=== PATIENT | male | born 1980 | race African-American/Black ===

== ENCOUNTER 2018-02-02 14:26 | Outpatient (CLI) | payer BC, SELFPAY ==
[2018-02-02 16:25] LABS: CREATININE 0.98 mg/dL (0.70-1.30); Potassium 4.1 mmol/L (3.5-5.1)
== END 2018-02-02 14:46 ==
PROVIDERS: PCP Family Medicine; Visit Provider Family Medicine
DX: G40.909 Epilepsy, unspecified, not intractable, without status epilepticus (principal); I10 Essential (primary) hypertension
CPT/HCPCS: 36415; 82565; 84132

== ENCOUNTER 2019-10-17 04:52 | Outpatient (CLI) | payer BC, SELFPAY ==
[2019-10-17 14:50] LABS: HGB 14.7 g/dL (13.5-17.5); Mean Corp. HGB Concentration 33.4 g/dL (32.0-36.0); Mean Corpuscular Hemoglobin 29.5 pg (27.0-33.0); Mean Corpuscular Volume 88.2 fL (80-95); Platelet Count 383 x1000/uL (130-400); RBC 4.99 m/cumm (4.50-6.00); RBC Distribution Width 14.5 % (11.8-14.1); White Blood Cell Count 7.66 k/cumm (4.4-10.8)
[2019-10-17 15:58] LABS: ALT 56 U/L (16-63); AST 21 U/L (15-37); Albumin 4.3 g/dL (3.4-5.0); Alkaline Phosphatase 68 U/L (46-116); Anion Gap 5.3 mmol/L (3-11); BUN 16 mg/dL (7-18); Bilirubin, Total 0.2 mg/dL (0.2-1.0); CO2 28.7 mmol/L (21.0-32.0); CREATININE 1.09 mg/dL (0.70-1.30); Calcium 9.7 mg/dL (8.5-10.1); Calculated LDL 250 mg/dL (<100); Chloride 103 mmol/L (98-107); Cholesterol 319 mg/dL (<200); Glucose 111 mg/dL (74-106); HDL Cholesterol 45 mg/dL (40-60); Potassium 3.8 mmol/L (3.5-5.1); Sodium 137 mmol/L (136-145); Total Protein 7.8 g/dL (6.4-8.2); Triglyceride 121 mg/dL (<150)
== END 2019-10-17 05:12 ==
PROVIDERS: PCP Family Medicine; Visit Provider Family Medicine
DX: I10 Essential (primary) hypertension (principal); E78.5 Hyperlipidemia, unspecified
CPT/HCPCS: 36415; 80053; 80061; 85027

== ENCOUNTER 2020-01-25 07:14 | Emergency (ER) | payer BC, SELFPAY ==
[2020-01-25] VITALS (43 sets, daily range): BP systolic 130–178; BP diastolic 79–122; PULSE 54–85; RESP 8–28; TEMP 36.7–37.1; O2SAT 94–100
--- NOTE | 2020-01-25 07:42 | W.ED.GENAD ---
Discharge Plan Disposition Patient Disposition: HOME Condition: Stable Discharge Details Clinical Impression: Chest pain Primary Care Provider: Oren Wade ED Provider: Ar Perez Home Meds and New Rx's Prescriptions: Continued cyclobenzaprine 10 mg tablet 10 mg PO TID PRN (Reason: muscle spasm) Qty: 30 RF: 0 ibuprofen 800 mg tablet 800 mg PO Q8H PRN RF: 0 amlodipine 5 mg tablet 5 mg PO DAILY Qty: 90 RF: 3 rosuvastatin 20 mg tablet 20 mg PO DAILY Qty: 90 RF: 3 hydrochlorothiazide 25 mg tablet 25 mg PO DAILY Qty: 90 RF: 3 lisinopril 20 mg tablet 40 mg PO DAILY Qty: 180 RF: 3 sertraline 50 mg tablet 50 mg PO DAILY Qty: 90 RF: 3 sildenafil (pulm.hypertension) 20 mg tablet 20 - 100 mg PO DAILY PRN (Reason: sexual activity) Qty: 30 RF: 5 azithromycin 250 mg tablet 250 - 500 mg PO DAILY Qty: 6 RF: 0 c-pap RF: 0 Discharge Instructions Instructions: Chest Pain (ED) Additional Instructions: your blood work and ecg did not show any concerning findings follow up with your primary care provider as soon as possible and discuss having a stress test if you have severe worsening pain, difficulty breathing or feel more ill return to the emergency department Medical Decision Making <Roderick Huynh DO - Last Filed: 01/25/20 07:52> 39-year-old -[place] male with a past medical history of hypertension, high cholesterol, mild obesity, obstructive sleep apnea, presents today for evaluation of palpitations. Patient states that this evening at around 3 AM he developed right-sided finger tingling which she states is atypical for normal. Then later this morning 1 to 2 hours prior to arrival he developed palpitations, feeling of unease in his chest, chest heaviness and tightness, and lightheadedness. His symptoms lasted a few minutes, they were worse with ambulation and exertion. 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 Currently the patient states that all of his symptoms have resolved. He denies any tearing or ripping sensation in his chest. He denies any syncope. He does the occasional cigar, but he denies any other tobacco use otherwise. He denies IV or illicit drug use. No other complaints at this time. No history of cardiac disease otherwise. Physical exam is unremarkable, vital signs are stable, differential appears less likely to be anxiety, potentially dehydration, brief dysrhythmia, or other cardiac or pulmonary etiology. Will get a d-dimer, serial troponins, gently rehydrate, monitor closely and reassess. Patient will be signed out to my colleague Dr. Ar Perez for reassessment and follow-up on labs imaging and EKGs. EKG 7: 28 Rate 78, intervals normal, nonspecific less than a millimeter of elevation in V1 V2, no evidence of STEMI, no tombstone, inverted T wave is present in lead III. OF NOTE the cardiac EKG system is currently down and no prior EKGs or current EKG can be documented reviewed. <Ar Perez MD - Last Filed: 01/25/20 11:11> pt asymptomatic and remains HD stable, first set of blood work negative. Heart score on my calculation is 3 so if repeat troponin and ecg unchanged feel he can be d/c'd with outpatient f/u with pcp and he is in agreement with this plan repeat troponin and ecg unchanged and he remains asymptomatic, will d/c and have him f/u with his pcp and return precautions given Medical Records Medical records reviewed: Yes I reviewed the patient's medical records. Lab Data Lab results reviewed: Yes I reviewed the patient's lab results. ECG Data Attestation: I personally reviewed and interpreted this ECG (s) as follows: Prior ECG tracings: available for review Interpretation: 2nd ekg shows sinus rhtyhm, rate of 62, pr [address] t wave ischemic findings HPI <Roderick Huynh DO - Last Filed: 01/25/20 07:52> General Date/Time Provider Initiated Documentation: 01/25/20 07:33. HPI Narrative: 39-year-old -[place] male with a past medical history of hypertension, high cholesterol, mild obesity, obstructive sleep apnea, presents today for evaluation of palpitations. Patient states that this evening at around 3 AM he developed right-sided finger tingling which she states is atypical for normal. Then later this morning 1 to 2 hours prior to arrival he developed palpitations, feeling of unease in his chest, chest heaviness and tightness, and lightheadedness. His symptoms lasted a few minutes, they were worse with ambulation and exertion. 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 Currently the patient states that all of his symptoms have resolved. He denies any tearing or ripping sensation in his chest. He denies any syncope. He does the occasional cigar, but he denies any other tobacco use otherwise. He denies IV or illicit drug use. No other complaints at this time. No history of cardiac disease otherwise. Related Data Home Medications Medication Instructions Recorded Confirmed C-Pap 07/10/16 11/08/19 ibuprofen 800 mg tablet 800 mg PO Q8H PRN tab 01/26/18 01/25/20 cyclobenzaprine 10 mg tablet 10 mg PO TID PRN #30 tab 10/02/19 01/25/20 amlodipine 5 mg tablet 5 mg PO DAILY #90 tab 11/08/19 01/25/20 azithromycin 250 mg tablet 250 - 500 mg PO DAILY #6 tab 11/08/19 01/25/20 hydrochlorothiazide 25 mg tablet 25 mg PO DAILY #90 tab 11/08/19 01/25/20 lisinopril 20 mg tablet 40 mg PO DAILY #180 tab 11/08/19 01/25/20 rosuvastatin 20 mg tablet 20 mg PO DAILY #90 tab 11/08/19 01/25/20 sertraline 50 mg tablet 50 mg PO DAILY #90 tab 11/08/19 01/25/20 sildenafil (pulm.hypertension) 20 20 - 100 mg PO DAILY PRN #30 tab 11/08/19 01/25/20 mg tablet Previous Rx's Medication Instructions Recorded cyclobenzaprine 10 mg tablet 10 mg PO TID PRN #30 tab 10/02/19 amlodipine 5 mg tablet 5 mg PO DAILY #90 tab 11/08/19 azithromycin 250 mg tablet 250 - 500 mg PO DAILY #6 tab 11/08/19 hydrochlorothiazide 25 mg tablet 25 mg PO DAILY #90 tab 11/08/19 lisinopril 20 mg tablet 40 mg PO DAILY #180 tab 11/08/19 rosuvastatin 20 mg tablet 20 mg PO DAILY #90 tab 11/08/19 sertraline 50 mg tablet 50 mg PO DAILY #90 tab 11/08/19 sildenafil (pulm.hypertension) 20 20 - 100 mg PO DAILY PRN #30 tab 11/08/19 mg tablet Allergies Allergy/AdvReac Type Severity Reaction Status Date / Time Penicillins Allergy Unknown Unverified 01/25/20 08:09 General Stated Complaint: Palpitatns GARY: 2 Review of Systems <Roderick Huynh DO - Last Filed: 01/25/20 07:52> All systems reviewed & are unremarkable except as noted in HPI and below PFSH <Roderick Huynh DO - Last Filed: 01/25/20 07:52> Medical History (Updated 01/25/20 @ 11:10 by Ar Perez MD) Depression Essential hypertension (03/28/13) Hyperlipidemia with target LDL less than 100 Morbid obesity Obstructive sleep apnea syndrome (12/08/15) Surgical History Tonsillectomy and adenoidectomy Family History Other Hypertension Social History Smoking/Tobacco Use Status: Current every day Tobacco Type: cigars Alcohol Intake: former Drug use: Never Household members: spouse and children Housing: house 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 3.ENT: Atraumatic external nose and ears. Moist MM. Neck: Symmetric, trachea midline, No thyromegaly. 4.CVS: +S1/S2, No murmurs or gallops. Peripheral pulses 2+ and equal in all extremities. Brisk capillary refill in all extremities. 5.RESP: Unlabored respiratory effort. Clear to auscultation bilaterally. No wheezes rales or rhonchi 6.GI: Soft, Nontender/Nondistended, No hepatosplenomegaly. No guarding or rebound. 7.MSK: Normocephalic/Atraumatic, Extremities w/o deformity or ttp No cyanosis or clubbing, Normal movement of all extremities , no calf tenderness 8.Skin: Warm, Dry. No rashes or lesions. 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 Sensation grossly intact, no focal neurologic deficits. 10.Psych: (AAO) x3. Appropriate mood and affect Course <Roderick Huynh DO - Last Filed: 01/25/20 07:52> Vital Signs Vital signs: Vital Signs Temperature 37.1 C 01/25/20 07:24 Pulse 80 01/25/20 07:24 Respiratory Rate 16 01/25/20 07:24 Blood Pressure 153/97 H 01/25/20 07:24 Pulse Oximetry 95 01/25/20 07:24 Temperature 37.1 C 01/25/20 07:24 Temperature Source Skin 01/25/20 07:24 Pulse 80 01/25/20 07:24 Respiratory Rate 16 01/25/20 07:24 Respiratory Effort Non-Labored 01/25/20 07:24 Blood Pressure 153/97 H 01/25/20 07:24 Blood Pressure Position Supine 01/25/20 07:24 Pulse Oximetry 95 01/25/20 07:24 Oxygen Delivery Method Room Air 01/25/20 07:24 Oxygen Flow Rate 0 01/25/20 07:24 Pain Level 0 01/25/20 07:24 Sign Out <Roderick Huynh DO - Last Filed: 01/25/20 07:52> Sign Out Data: Sign Out Comment: labs d dimer reassessment Last updated by Roderick Huynh DO at 01/25/20 07:57
--- NOTE | 2020-01-25 07:45 | RT.EKG_ITS ---
APPROVED REPORT Exam: Resting ECG Patient Location: E HR:78 bpm ECG Measurements Heart Rate 78 AXIS PA 178 P 47 QRSd 109 QRS 59 QT 373 T 5 QTc 426 Conclusion Age and gender not entered, assume 48 yo male for purpose of ECG interpretation Sinus rhythm...normal P axis, V-rate 60- 99 ST elev, probable normal early repol pattern...ST elevation, age<55
[2020-01-25] MEDS: Normal Saline 1,000 ML 1000 ML IV (07:52)
[2020-01-25 07:55] LABS: Abs Immature Grans 0.03 10^3/uL (0.0-0.06); Absolute Basophil Count 0.09 10^3/uL (0.0-0.2); Absolute Eosinophil Count 0.34 10^3/uL (0.0-0.7); Absolute Monocyte Count 0.47 10^3/uL (0.1-0.8); Absolute Neutrophil Count 3.83 10^3/uL (1.2-6.7); Basophils % 1.3; Eosinophils % 4.8; HCT 43.2 % (40.0-50.0); HGB 14.4 g/dL (13.5-17.5); Immature Grans % 0.4; Lymphocytes % 32.6; MCH 29.7 pg (27.0-33.0); MCHC 33.3 % (32.0-36.0); MCV 89.1 fL (80-95); Monocytes % 6.7; Neutrophils % 54.2; Nucleated RBC 0 %; Platelet Count 335 10^3/uL (130-400); RBC 4.85 10^6/uL (4.36-5.78); RDW-SD 45.7 fL; WBC 7.06 10^3/uL (4.4-10.8)
[2020-01-25 08:15] LABS: ALT 52 U/L (16-63); AST 24 U/L (15-37); Albumin 3.8 g/dL (3.4-5.0); Alkaline Phosphatase 55 U/L (46-116); BUN 15 mg/dL (7-18); Bilirubin, Total 0.3 mg/dL (0.2-1.0); CREATININE 1.08 mg/dL (0.70-1.30); Calcium 8.9 mg/dL (8.5-10.1); Chloride 103 mmol/L (98-107); Glucose 94 mg/dL (74-106); NT-proBNP 18 pg/mL (<300); PTT Activated 26.5 sec (21.0-31.4); Potassium 3.8 mmol/L (3.5-5.1); Prothrombin Time 9.9 sec (9.3-11.0); Sodium 138 mmol/L (136-145); TSH (W/Ref FT4) 0.89 uIU/mL (0.36-3.74); Total Protein 7.4 g/dL (6.4-8.2)
[2020-01-25 08:16] LABS: Troponin I < 0.05 ng/mL (<0.06)
[2020-01-25 08:34] LABS: D-Dimer 165 ng/mlFEU (<500)
--- NOTE | 2020-01-25 10:45 | RT.EKG_ITS ---
APPROVED REPORT Exam: Resting ECG Patient Location: E HR:62 bpm ECG Measurements Heart Rate 62 AXIS CA 184 P 0 QRSd 110 QRS 70 QT 404 T 13 QTc 412 Conclusion Sinus rhythm...normal P axis, V-rate 60- 99 ST elevation suggests acute pericarditis...ST >0.10mV, ant/lat/inf no acute changes from first ekg
[2020-01-25 11:04] LABS: Troponin I < 0.05 ng/mL (<0.06)
--- NOTE | 2020-01-25 12:16 | NUR.NOTE ---
Nursing Note: Referral faxed to PCP for follow up. Subha Calhoun
== END 2020-01-25 11:17 | disposition home or self-care (01) ==
PROVIDERS: Student in an Organized Health Care Education/Training Program; Emergency Provider Emergency Medicine; PCP Family Medicine
DX: R07.89 Other chest pain (principal); R20.2 Paresthesia of skin; R00.2 Palpitations; I10 Essential (primary) hypertension
CPT/HCPCS: 80053; 93005; 96360; 99284; 83880; 84443; 84484; 85025; 85379; 85610; 85730; 93010

== ENCOUNTER 2020-05-20 09:45 | Outpatient (CLI) | payer BC, SELFPAY ==
[2020-05-21 21:09] LABS: COVID-19 RT-PCR UVMMC Result Negative (Negative)
== END 2020-05-20 10:05 ==
PROVIDERS: PCP Family Medicine; Visit Provider Family Medicine
DX: R09.81 Nasal congestion (principal); M79.18 Myalgia, other site
CPT/HCPCS: U0003

== ENCOUNTER 2020-09-13 02:03 | Outpatient (CLI) | payer BC, SELFPAY ==
[2020-09-13 09:38] LABS: Calculated LDL 224 mg/dL (<100); Cholesterol 312 mg/dL (<200); HDL Cholesterol 41 mg/dL (40-60); Triglyceride 236 mg/dL (<150)
== END 2020-09-13 02:04 | disposition home or self-care (01) ==
LOC: LBO 02:05
PROVIDERS: PCP Family Medicine; Visit Provider Family Medicine
DX: E78.5 Hyperlipidemia, unspecified (principal)
CPT/HCPCS: 36415; 80061

== ENCOUNTER 2020-10-31 02:07 | Emergency (ER) | payer BC, SELFPAY ==
[2020-10-31] VITALS (18 sets, daily range): BP systolic 146–157; BP diastolic 88–99; PULSE 68–89; RESP 12–24; TEMP 36.4; O2SAT 94–100
--- NOTE | 2020-10-31 02:00 | RT.EKG_ITS ---
APPROVED REPORT Exam: Resting ECG Reason for Exam: chest pain Patient Location: E HR:80 bpm ECG Measurements Heart Rate 80 AXIS DC 169 P 51 QRSd 118 QRS 74 QT 391 T -6 QTc 453 Conclusion Sinus rhythm...normal P axis, V-rate 60- 99 Nonspecific intraventricular conduction delay...QRSd >115mS, not LBBB/RBBB ST elevation, consider anterior injury...ST >0.15mV, V1-V5 There are no significant changes compared to prior EKG performed on 01/25/2020 at 10:58. J point arlene vation in anterior leads, not ischemia.
--- NOTE | 2020-10-31 02:08 | ED.GENADUL_ITS ---
Discharge Plan Disposition Patient Disposition: HOME Condition: Good Discharge Details Clinical Impression: Chest pain Primary Care Provider: Oren Wade ED Provider: Rex Phelps Home Meds and New Rx's Prescriptions: Continued cyclobenzaprine 10 mg tablet 10 mg PO TID PRN (Reason: muscle spasm) Qty: 30 RF: 0 ibuprofen 800 mg tablet 800 mg PO Q8H PRN RF: 0 amlodipine 5 mg tablet 5 mg PO DAILY Qty: 90 RF: 3 rosuvastatin 20 mg tablet 20 mg PO DAILY Qty: 90 RF: 3 hydrochlorothiazide 25 mg tablet 25 mg PO DAILY Qty: 90 RF: 3 lisinopril 20 mg tablet 40 mg PO DAILY Qty: 180 RF: 3 sertraline 50 mg tablet 50 mg PO DAILY Qty: 90 RF: 3 sildenafil (pulm.hypertension) 20 mg tablet 20 - 100 mg PO DAILY PRN (Reason: sexual activity) Qty: 30 RF: 5 c-pap RF: 0 Discharge Instructions Instructions: Chest Pain (ED) Additional Instructions: Your EKG, laboratory studies including cardiac enzymes and chest x-ray look good tonight. Pain seems to be musculoskeletal chest wall pain given its location, worsening with left arm movement. Recommend ibuprofen or acetaminophen if needed. Follow-up with primary care. Return to ED for new or worsening pain, shortness of breath, diaphoresis, other concerns. Stand Alone Forms: Work Release Referrals: Oren Wade. [Primary Care Provider] - Medical Decision Making Patient presenting with chest pain that appears to be musculoskeletal in nature and that it hurts more with movement and seems to be situated in his chest wall per his own description. His exam is unremarkable. Pain is not constant but discomfort is. Pain has been present more today than it had been previously. EKG tonight is unchanged from previous. There is nonspecific interventricular conduction delay as well as some J-point elevation which has been present. Patient denies any significant pain currently. Will obtain set of labs and chest x-ray. Given his history of lingering discomfort and increased pain today I think one troponin is enough. He is low risk by HEART and EDACS score. Also low risk for PE despite pleuritic nature of pain by revised [place] score. Patient laboratory studies are unremarkable. CBC normal. Chemistries with mild hypokalemia otherwise normal. Troponin negative. D-dimer negative. Chest x- ray per my review unremarkable. Again, due to the week long chest discomfort with episodes of what he would describe his pain and the fact that pain is reproducible with movement and palpation, this appears to be musculoskeletal in nature. Recommend ibuprofen or acetaminophen as needed. Follow-up with primary care. Return to ED for new/worsening pain, shortness of breath, diaphoresis or other concerns. Medical Records Medical records reviewed: Yes I reviewed the patient's medical records. Lab Data Lab results reviewed: Yes I reviewed the patient's lab results. ECG Data Attestation: I personally reviewed and interpreted this ECG (s) as follows: Prior ECG tracings: available for review Interpretation: see EKG HPI General Mode of arrival: ambulatory . Date/Time Provider Initiated Documentation: 10/31/20 02:08 . Limitations to Documentation: no limitations . Information obtained by: patient, RN notes reviewed and old records reviewed . HPI Narrative: Patient presents to the ED with complaint of left-sided chest pain. Patient reports having this for a week now, although it is not constant. He does have lingering discomfort but he has pain with deep breaths or movement of his left upper extremity. Does not have a change in pain with exertion. He does not feel short of breath. There is no radiation of the pain. Today has been bothering him more than during the week. Does not have a cardiac history but he wanted to be sure that it was not heart related and came to the ED. He denies fever, cough, GI symptoms, leg pain, leg swelling, history of blood clots, family history of early cardiac disease. Related Data Home Medications Medication Instructions Recorded Confirmed C-Pap 07/10/16 02/02/20 ibuprofen 800 mg tablet 800 mg PO Q8H PRN tab 01/26/18 10/31/20 cyclobenzaprine 10 mg tablet 10 mg PO TID PRN #30 tab 10/02/19 10/31/20 amlodipine 5 mg tablet 5 mg PO DAILY #90 tab 11/08/19 10/31/20 hydrochlorothiazide 25 mg tablet 25 mg PO DAILY #90 tab 11/08/19 10/31/20 lisinopril 20 mg tablet 40 mg PO DAILY #180 tab 11/08/19 10/31/20 rosuvastatin 20 mg tablet 20 mg PO DAILY #90 tab 11/08/19 10/31/20 sertraline 50 mg tablet 50 mg PO DAILY #90 tab 11/08/19 10/31/20 sildenafil (pulm.hypertension) 20 20 - 100 mg PO DAILY PRN #30 tab 11/08/19 10/31/20 mg tablet Previous Rx's Medication Instructions Recorded cyclobenzaprine 10 mg tablet 10 mg PO TID PRN #30 tab 10/02/19 amlodipine 5 mg tablet 5 mg PO DAILY #90 tab 11/08/19 hydrochlorothiazide 25 mg tablet 25 mg PO DAILY #90 tab 11/08/19 lisinopril 20 mg tablet 40 mg PO DAILY #180 tab 11/08/19 rosuvastatin 20 mg tablet 20 mg PO DAILY #90 tab 11/08/19 sertraline 50 mg tablet 50 mg PO DAILY #90 tab 11/08/19 sildenafil (pulm.hypertension) 20 20 - 100 mg PO DAILY PRN #30 tab 11/08/19 mg tablet Allergies Allergy/AdvReac Type Severity Reaction Status Date / Time Penicillins Allergy Unknown Unverified 10/31/20 02:17 General GARY: 2 Review of Systems Narrative: As documented in HPI otherwise negative as below. Const: no fever, chills, weakness Resp: no cough, SOB CV: no diaphoresis, edema, syncope GI: no abdominal pain, nausea, vomiting, diarrhea Neuro: no headache, numbness, focal weakness, confusion [facility] Medical History (Updated 10/31/20 @ 04:29 by Rex Phelps MD) Depression Essential hypertension (03/28/13) Hyperlipidemia with target LDL less than 100 Morbid obesity Obstructive sleep apnea syndrome (12/08/15) Surgical History Tonsillectomy and adenoidectomy Family History Other Hypertension Social History Smoking/Tobacco Use Status: Current every day Tobacco Type: cigars Smoking risk assessment performed?: Yes Alcohol Intake: former Drug use: Never Household members: spouse and children Housing: house 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 HEENT: NC/AT. Normal facial exam. Eyes: Normal conjunctiva and sclera. Neck: Supple. Trachea midline. Lungs: Normal respiratory effort. Lungs are clear. Some tenderness left pectoralis region. Cor: RRR without murmur/gallop. Good radial pulses. GI: Soft. NT/ND. No guarding or rebound. Neuro: A+O x 3. Normal speech, mentation, gait. Cranial nerves II - XII grossly intact. No gross motor or sensory deficit. Ext: No C/C/E. No calf tenderness. Skin: Warm and dry without rash.
--- NOTE | 2020-10-31 02:15 | DI.RAD_ITS ---
Exam(s) XR CHEST 2V PA LATERAL EXAM: XR CHEST 2V PA LATERAL CLINICAL HISTORY: cp. TECHNIQUE: 2D digital imaging was performed. COMPARISON: CR CHEST 2 VIEWS PA,LAT from 07/29/2016 FINDINGS: Heart size is normal. The mediastinum is not widened. Lungs are clear. No infiltrates nor pleural effusions. IMPRESSION: No acute pulmonary findings. DATA REPOSITORY: RADIATION DOSE DELIVERED:
[2020-10-31 02:39] LABS: Abs Immature Grans 0.03 10^3/uL (0.0-0.06); Absolute Basophil Count 0.08 10^3/uL (0.0-0.2); Absolute Eosinophil Count 0.26 10^3/uL (0.0-0.7); Absolute Monocyte Count 0.91 10^3/uL (0.1-0.8); Absolute Neutrophil Count 4.75 10^3/uL (1.2-6.7); Basophils % 0.8; Eosinophils % 2.7; HCT 46.2 % (40.0-50.0); HGB 15.4 g/dL (13.5-17.5); Immature Grans % 0.3; Lymphocytes % 36.7; MCH 30.1 pg (27.0-33.0); MCHC 33.3 % (32.0-36.0); MCV 90.4 fL (80-95); MPV 8.7 fL (8.0-11.0); Monocytes % 9.5; Nucleated RBC 0 %; Platelet Count 365 10^3/uL (130-400); RBC 5.11 10^6/uL (4.36-5.78); RDW 13.2 % (11.8-14.1); RDW-SD 43.8 fL; WBC 9.53 10^3/uL (4.4-10.8)
[2020-10-31 02:56] LABS: ALT 51 U/L (16-63); AST 23 U/L (15-37); Albumin 3.9 g/dL (3.4-5.0); Alkaline Phosphatase 64 U/L (46-116); Anion Gap 9.6 mmol/L (3-11); BUN 16 mg/dL (7-18); Bilirubin, Total 0.4 mg/dL (0.2-1.0); CO2 28.4 mmol/L (21.0-32.0); CREATININE 1.1 mg/dL (0.70-1.30); Calcium 9.2 mg/dL (8.5-10.1); Chloride 103 mmol/L (98-107); Glucose 101 mg/dL (74-106); Magnesium 1.9 mg/dL (1.8-2.4); Potassium 3.3 mmol/L (3.5-5.1); Sodium 141 mmol/L (136-145); Total Protein 7.9 g/dL (6.4-8.2)
[2020-10-31 02:58] LABS: Troponin I < 0.05 ng/mL (<0.06)
[2020-10-31 03:19] LABS: D-Dimer 194 ng/mlFEU (<500)
--- NOTE | 2020-10-31 04:52 | DI.VRAD_ITS ---
PROCEDURE INFORMATION: Exam: XR Chest Exam date and time: 10/31/2020 2:29 AM Age: 39 years old Clinical indication: Other: Cp TECHNIQUE: Imaging protocol: XR of the chest. Views: 2 views. COMPARISON: CR CHEST 2 VIEWS PA,LAT 07/29/2016 6:50 PM FINDINGS: Lungs: Unremarkable. No consolidation. Pleural spaces: Unremarkable. No pleural effusion. No pneumothorax. Heart/Mediastinum: Unremarkable. No cardiomegaly. Bones/joints: Unremarkable. IMPRESSION: No acute findings. Dictated and Authenticated by: Ar Morgan MD. Ordering:KAL Goodman MD
== END 2020-10-31 04:37 | disposition home or self-care (01) ==
PROVIDERS: Emergency Provider Emergency Medicine; PCP Family Medicine
DX: R07.9 Chest pain, unspecified (principal)
CPT/HCPCS: 36415; 80053; 93005; 99284; 71046; 83735; 84484; 85025; 85379; 93010; 99283

== ENCOUNTER 2021-01-22 15:44 | Outpatient (CLI) | payer BC, SELFPAY ==
--- NOTE | 2021-01-22 15:30 | RT.EKG_ITS ---
APPROVED REPORT Exam: Resting ECG Reason for Exam: chest pain Patient Location: O HR:80 bpm ECG Measurements Heart Rate 80 AXIS DE 173 P 56 QRSd 111 QRS 77 QT 370 T 4 QTc 427 Conclusion Sinus rhythm...normal P axis, V-rate 60- 99 Probable anteroseptal infarct, acute...ST>0.15mV, T upright, V1-V2 Borderline ST elevation, lateral leads...ST >0.06mV, I aVL V5 V6 Could be early repolarisation
== END 2021-01-22 15:45 | disposition home or self-care (01) ==
LOC: DI.CM 15:45
PROVIDERS: PCP Family Medicine; Visit Provider Family Medicine
DX: R07.9 Chest pain, unspecified (principal)
CPT/HCPCS: 93010

== ENCOUNTER 2021-06-26 01:38 | Outpatient (CLI) | payer BC, SELFPAY ==
--- NOTE | 2021-06-26 07:00 | DI.NM_ITS ---
APPROVED REPORT Exam: Exercise Treadmill Patient Location: Out-Patient Room/Bed: Stress Nurse: Svetlana Greene RN Ordering Provider:PEGGY LOPES, Contact Number: [phone] BMI: 43.80 Baseline Rhythm: Sinus Rhythm Comment: Diffuse ST elevation lateral leads, flipped T waves lead III Indications: Chest pain Medical History Medical History: Hypertension, hyperlipidemia, smoker (former), obesity, KESHA w/ CPAP, depression Cardiac Medications: Metoprolol succinate (not taken for > 1 month), lisinopril, amlodipine, rosuvast atin, sildenafil Allergies: Penicillins Cardiac Risk Factors: Hypertension, hyperlipidemia, smoker (former), obesity, family hx Previous Cardiac Procedures: None Pretest Chest Pain Characteristics: None Exercise History: Sedentary Physical Disabilities: None Lung Sounds: Clear to auscultation Heart Sounds: Regular Stress Test Details Test: Exercise stress testing was performed using a Patrick protocol. Nuclear Acquisition: Rest Tc-99m/Stress Tc-99m 1 day Rest Isotope: Tc-99m Sestamibi. Dose: 14.0 Date: 06/26/2021 Injection Time: 1130 Stress Isotope: Tc-99m Sestamibi. Dose: 44.5 Date: 06/26/2021 Injection Time: 1330 HR Resting HR Supine: 76 bpm Max Heart Rate (APMHR): 178.090683 bpm Resting HR Standin bpm Target HR (85% APMHR): 151.399273 bpm Max HR Achieved: 167 bpm % of APMHR: 93.82 Recovery HR: 100 bpm HR response to stress: Normal HR response to stress BP Resting BP Supine: 170/80 mmHg Resting BP Standin/82 mmHg Max BP: 194/96 mmHg Recovery BP: 150/90 mmHg BP response to stress: Normal blood pressure response to stress. ECG Resting ECG: Sinus Rhythm Ectopy: None Comment: Diffuse ST elevation lateral leads, flipped T waves lead III Stress ECG: Sinus Tachycardia. Flipped T waves lead III ST Change: No significant ST segment changes noted Arrhythmia: Rare PVC Recovery ECG: Sinus Rhythm. Flipped T waves lead III Recovery ST Change: No significant ST segment changes noted Recovery Arrhythmia: None Clinical Reason for Termination: Fatigue Stress Symptoms: General Fatigue Exercise duration: 12 min32 sec Highest Stage Reached: Stage 4: 4.2 mph at 16% grade. Exercise capacity: 12.08 METs Russell Treadmill Score: 10.5 Rate Pressure Product: [id number] Stress ECG Conclusion 1. Resting electrocardiogram was within normal limits 2. Patient exercised on the Patrick protocol and completed a workload of 12.08 METS, stopping due to fa tigue 3. Normal heart rate and blood pressure response to exercise. Patient achieved 93% of predicted hear t rate for age 4. There was no electrocardiographic evidence of myocardial ischemia 5. There were no significant dysrhythmias Russell Treadmill Score is 10.5 which is Low risk. Stress Test Summary STAGE Time (mins) Speed (mph) Grade (%) HR BP SYMPTOMS METS Supine 76 170/80 Standing 82 168/82 SpO2 97% 1 3 1.7 10 107 176/88 SpO2 95% 4.6 2 6 2.5 12 135 180/86 SpO2 96% 7 3 9 3.4 14 158 194/96 SpO2 95% 10.2 4 12 4.2 16 164 SpO2 94% 12.9 1 min recovery 146 194/88 SpO2 94% 3 min recovery 117 182/84 SpO2 97% 6 min recovery 100 150/90 SpO2 97% During 2nd stage of exercise, treadmill briefly paused to adjust ekg wires for better reading. Exerci se stress test promptly resumed. Pt tolerated testing well. MPI Conclusion Normal myocardial perfusion. There is no evidence of ischemia or prior infarction. EF 56%, normal wall motion Radiologist Interpretation Radiologist Interpretation by: Rex Nieves MD Interpretation Date/Time: 06/27/2021 15:21:04
== END 2021-06-26 01:58 ==
PROVIDERS: PCP Family Medicine; Visit Provider Family Medicine
DX: R07.9 Chest pain, unspecified (principal); E78.5 Hyperlipidemia, unspecified; I10 Essential (primary) hypertension; E66.8 Other obesity; Z87.891 Personal history of nicotine dependence
CPT/HCPCS: 78452; 93017

== ENCOUNTER 2021-12-04 01:45 | Outpatient (CLI) | payer BC, SELFPAY ==
[2021-12-04 14:51] LABS: Calculated LDL 229 mg/dL (<100); Cholesterol 294 mg/dL (<200); HDL Cholesterol 48 mg/dL (40-60); Triglyceride 89 mg/dL (<150)
== END 2021-12-04 01:46 | disposition home or self-care (01) ==
LOC: LBO 01:45
PROVIDERS: PCP Family Medicine; Visit Provider Family Medicine
DX: E78.5 Hyperlipidemia, unspecified (principal)
CPT/HCPCS: 36415; 80061

== ENCOUNTER 2022-04-29 08:25 | Outpatient (CLI) | payer BC, SELFPAY ==
[2022-04-29 12:46] LABS: Anion Gap 6.6 mmol/L (3-11); BUN 15 mg/dL (7-18); CO2 28.4 mmol/L (21.0-32.0); Calcium 9.2 mg/dL (8.5-10.1); Calculated LDL 257 mg/dL (<100); Chloride 107 mmol/L (98-107); Cholesterol 329 mg/dL (<200); Estimated GFR 95.77 (mL/min/1.73m2); Glucose 103 mg/dL (74-106); HDL Cholesterol 48 mg/dL (40-60); Potassium 4.1 mmol/L (3.5-5.1); Sodium 142 mmol/L (136-145); Triglyceride 120 mg/dL (<150)
== END 2022-04-29 08:26 | disposition home or self-care (01) ==
LOC: LOS 08:25
PROVIDERS: PCP Family Medicine; Referring Provider Family Medicine; Visit Provider Family Medicine
DX: E78.5 Hyperlipidemia, unspecified (principal); E87.1 Hypo-osmolality and hyponatremia
CPT/HCPCS: 36415; 80048; 80061

== ENCOUNTER 2022-11-20 07:59 | Emergency (ER) | payer BC, SELFPAY ==
[2022-11-20 08:08] VITALS: BP 142/95; PULSE 70; RESP 16; TEMP 36.6; O2SAT 100
--- NOTE | 2022-11-20 08:15 | DI.RAD_ITS ---
Exam(s) XR FINGER RT INDEX EXAM: XR FINGER RT INDEX CLINICAL HISTORY: injury. TECHNIQUE: 2D digital imaging was performed. Three views. COMPARISON: No exams were available for comparison FINDINGS: BONES: No acute fracture is present. No bony destructive lesion is seen. JOINTS: No dislocation present. SOFT TISSUE: Normal. IMPRESSION: No evidence of acute fracture, dislocation, or subluxation. DATA REPOSITORY: RADIATION DOSE DELIVERED:
--- NOTE | 2022-11-20 08:18 | ED.GENADUL_ITS ---
Discharge Plan Disposition Patient Disposition: Home Condition: Good Discharge Details Clinical Impression: Injury of right index finger Primary Care Provider: Oren Wade ED Provider: Rex Clark Sylva Meds and New Rx's Prescriptions: Continued ibuprofen 800 mg tablet 800 mg PO Q8H PRN nitroglycerin 0.4 mg tablet, sublingual 0.4 mg sublingual Q5-15M PRN (Reason: chest pain) Qty: 25 0RF Rx Instructions: take as needed q 5 mins for c/p until gone if take 3 pills and pain persists, call metoprolol succinate 100 mg tablet extended release 24 hr 100 mg PO DAILY Qty: 90 3RF hydrochlorothiazide 25 mg tablet 25 mg PO DAILY Qty: 90 3RF metoprolol succinate 50 mg tablet extended release 24 hr 50 mg PO DAILY Qty: 90 3RF Rx Instructions: take with 100 mg to equal 150 mg/day lisinopril 20 mg tablet 40 mg PO DAILY Qty: 180 3RF amlodipine 5 mg tablet 5 mg PO DAILY Qty: 90 3RF sertraline 50 mg tablet 50 mg PO DAILY Qty: 90 3RF rosuvastatin 40 mg tablet 40 mg PO DAILY Qty: 90 3RF Rx Instructions: start with half a tab/day for first week then take whole tab sildenafil (pulm.hypertension) 20 mg tablet 20 - 100 mg PO DAILY PRN (Reason: sexual activity) Qty: 30 12RF Wegovy 0.25 mg/0.5 mL pen injector 0.25 mg subcut QWEEK Qty: 2 0RF Rx Instructions: administer weeks 1 through 4 of therapy Wegovy 1 mg/0.5 mL pen injector 1 mg subcut QWEEK Qty: 2 0RF Rx Instructions: administer weeks 9 through 12 of therapy Wegovy 1.7 mg/0.75 mL pen injector 1.7 mg subcut QWEEK Qty: 3 0RF Rx Instructions: administer weeks 13 through 16 of therapy Wegovy 2.4 mg/0.75 mL pen injector 2.4 mg subcut QWEEK Qty: 3 5RF Rx Instructions: start when 1.7 mg dosing finished Wegovy 0.5 mg/0.5 mL pen injector 0.5 mg subcut QWEEK Qty: 2 0RF Rx Instructions: administer weeks 5 through 8 of therapy Discharge Instructions Instructions: Crush Injury (ED) HPI General Date/Time Provider Initiated Documentation: 11/20/22 08:03 . History of Present Illness Quality is described as aching, HPI Narrative: 42 year old male presents to the ED with persistent pain in R index finger. He says that he smashed his finger in a security door around 2 weeks ago, has had persistent pain that he says is mostly annoying. Pain mostly in the distal as pect of his finger. He has had some finger pain that has started radiating into his hand. He is L hand dominant. Pt concerned that he may have broken something. Related Data Home Medications Medication Instructions Recorded Confirmed ibuprofen 800 mg tablet 800 mg PO Q8H PRN 01/26/18 08/06/22 amlodipine 5 mg tablet 5 mg PO DAILY #90 tabs 12/02/20 08/06/22 nitroglycerin 0.4 mg sublingual 0.4 mg sublingual Q5-15M PRN chest 01/22/21 08/06/22 tablet pain #25 tabs sertraline 50 mg tablet 50 mg PO DAILY #90 tabs 02/19/22 08/06/22 hydrochlorothiazide 25 mg tablet 25 mg PO DAILY #90 tabs 04/29/22 08/06/22 metoprolol succinate 100 mg 100 mg PO DAILY #90 tabs 04/29/22 08/06/22 tablet,extended release 24 hr rosuvastatin 40 mg tablet 40 mg PO DAILY #90 tabs 04/29/22 08/06/22 sildenafil (pulm.hypertension) 20 20 - 100 mg PO DAILY PRN sexual 05/15/22 08/06/22 mg tablet activity #30 tabs lisinopril 20 mg tablet 40 mg PO DAILY #180 tabs 08/06/22 08/06/22 metoprolol succinate 50 mg 50 mg PO DAILY #90 tabs 08/06/22 08/06/22 tablet,extended release 24 hr semaglutide (weight loss) 0.25 0.25 mg (0.5 mL) subcut QWEEK #2 mL 10/05/22 mg/0.5 mL subcutaneous pen injector (Gladys) semaglutide (weight loss) 1 mg/0.5 1 mg (0.5 mL) subcut QWEEK #2 mL 10/05/22 mL subcutaneous pen injector (Wegovy) semaglutide (weight loss) 0.5 0.5 mg (0.5 mL) subcut QWEEK #2 mL 11/09/22 mg/0.5 mL subcutaneous pen injector (Wegovy) semaglutide (weight loss) 1.7 1.7 mg (0.75 mL) subcut QWEEK #3 mL 11/09/22 mg/0.75 mL subcutaneous pen injector (Wegovy) semaglutide (weight loss) 2.4 2.4 mg (0.75 mL) subcut QWEEK #3 mL 11/09/22 mg/0.75 mL subcutaneous pen injector (Wegovy) Previous Rx's Medication Instructions Recorded amlodipine 5 mg tablet 5 mg PO DAILY #90 tabs 12/02/20 nitroglycerin 0.4 mg sublingual 0.4 mg sublingual Q5-15M PRN chest 01/22/21 tablet pain #25 tabs sertraline 50 mg tablet 50 mg PO DAILY #90 tabs 02/19/22 hydrochlorothiazide 25 mg tablet 25 mg PO DAILY #90 tabs 04/29/22 metoprolol succinate 100 mg 100 mg PO DAILY #90 tabs 04/29/22 tablet,extended release 24 hr rosuvastatin 40 mg tablet 40 mg PO DAILY #90 tabs 04/29/22 sildenafil (pulm.hypertension) 20 20 - 100 mg PO DAILY PRN sexual 05/15/22 mg tablet activity #30 tabs lisinopril 20 mg tablet 40 mg PO DAILY #180 tabs 08/06/22 metoprolol succinate 50 mg 50 mg PO DAILY #90 tabs 08/06/22 tablet,extended release 24 hr semaglutide (weight loss) 0.25 0.25 mg (0.5 mL) subcut QWEEK #2 mL 10/05/22 mg/0.5 mL subcutaneous pen injector (Wegovy) semaglutide (weight loss) 1 mg/0.5 1 mg (0.5 mL) subcut QWEEK #2 mL 10/05/22 mL subcutaneous pen injector (Wegovy) semaglutide (weight loss) 0.5 0.5 mg (0.5 mL) subcut QWEEK #2 mL 11/09/22 mg/0.5 mL subcutaneous pen injector (Wegovy) semaglutide (weight loss) 1.7 1.7 mg (0.75 mL) subcut QWEEK #3 mL 11/09/22 mg/0.75 mL subcutaneous pen injector (Wegovy) semaglutide (weight loss) 2.4 2.4 mg (0.75 mL) subcut QWEEK #3 mL 11/09/22 mg/0.75 mL subcutaneous pen injector (Wegovy) Allergies Allergy/AdvReac Type Severity Reaction Status Date / Time Penicillins Allergy Unknown Unverified 11/20/22 08:12 General Stated Complaint: Orthopedic GARY: 4 Review of Systems Musculoskeletal Comments: +Pain; +remote injury PFSH All Active Problems (Updated 11/20/22 @ 09:07 by Rex Clark MD) Injury of right index finger (Acute) Gynecomastia (Acute) Achilles tendonitis (Acute) Hair loss (Acute) Personal history of nicotine dependence (Acute) qui6 06/2021 Chest pain (Acute) Mid back pain on right side (Acute) Otitis media, left (Acute) Depression (Chronic) Blackout spell (Chronic) Seizure disorder (Chronic) Obstructive sleep apnea syndrome (Acute 12/08/15) Morbid obesity (Acute) Hyperlipidemia with target LDL less than 100 (Acute) Essential hypertension (Acute 03/28/13) Surgical History Tonsillectomy and adenoidectomy Family History Other Hypertension Social History (Updated 01/27/21 @ 09:41 by Mai Alcantar) Smoking/Tobacco Use Status: Current-Occasional Tobacco Type: cigars Smokeless tobacco user: other (cigar) Quit status: quit date established Second Hand Exposure: Yes Smoking risk assessment performed?: Yes Alcohol Intake: current Alcohol Intake frequency: a few times a month Alcohol type: wine Drug use: Rarely Substance use type: marijuana Household members: spouse and children Housing: house 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 Xrays without acute findings. Given splint for comfort. Suspect with continue to improve with time, can f/u with pcp and provide any referrals as needed. Reevaluation(s) Initial Evaluation: Pt with prior finger injury, persistent mild pain, xrays neg for acute fx. Placed finger splint for comfort, tylenol/motrin for pain and f/u with pcp. Vital Signs Vital signs: Vital Signs Temperature 36.6 C 11/20/22 08:08 Pulse 70 11/20/22 08:08 Respiratory Rate 16 11/20/22 08:08 Blood Pressure 142/95 H 11/20/22 08:08 Pulse Oximetry 100 11/20/22 08:08 Temperature 36.6 C 11/20/22 08:08 Temperature Source Skin 11/20/22 08:08 Pulse 70 11/20/22 08:08 Respiratory Rate 16 11/20/22 08:08 Blood Pressure 142/95 H 11/20/22 08:08 Blood Pressure Position Sitting 11/20/22 08:08 Pulse Oximetry 100 11/20/22 08:08 Oxygen Delivery Method Room Air 11/20/22 08:08 Oxygen Flow Rate 0 11/20/22 08:08 Pain Level 3 11/20/22 08:08
== END 2022-11-20 09:17 | disposition home or self-care (01) ==
PROVIDERS: Emergency Provider Emergency Medicine; PCP Family Medicine
DX: S69.91XA Unspecified injury of right wrist, hand and finger(s), initial encounter (principal); X58.XXXA Exposure to other specified factors, initial encounter
CPT/HCPCS: 99283; 73140

== ENCOUNTER 2022-11-22 11:13 | Emergency (ER) | payer OTHER, SELFPAY ==
[2022-11-22 11:25] VITALS: BP 141/99; PULSE 74; RESP 18; TEMP 36.7; O2SAT 99
--- NOTE | 2022-11-22 12:00 | W.ED.GENAD ---
Discharge Plan Disposition Patient Disposition: Home Discharge Details Clinical Impression: Right foot sprain Primary Care Provider: Oren Wade ED Provider: Viry Rice Home Meds and New Rx's Prescriptions: Continued nitroglycerin 0.4 mg tablet, sublingual 0.4 mg sublingual Q5-15M PRN (Reason: chest pain) Qty: 25 0RF Rx Instructions: take as needed q 5 mins for c/p until gone if take 3 pills and pain persists, call metoprolol succinate 100 mg tablet extended release 24 hr 100 mg PO DAILY Qty: 90 3RF hydrochlorothiazide 25 mg tablet 25 mg PO DAILY Qty: 90 3RF metoprolol succinate 50 mg tablet extended release 24 hr 50 mg PO DAILY Qty: 90 3RF Rx Instructions: take with 100 mg to equal 150 mg/day lisinopril 20 mg tablet 40 mg PO DAILY Qty: 180 3RF amlodipine 5 mg tablet 5 mg PO DAILY Qty: 90 3RF sertraline 50 mg tablet 50 mg PO DAILY Qty: 90 3RF rosuvastatin 40 mg tablet 40 mg PO DAILY Qty: 90 3RF Rx Instructions: start with half a tab/day for first week then take whole tab sildenafil (pulm.hypertension) 20 mg tablet 20 - 100 mg PO DAILY PRN (Reason: sexual activity) Qty: 30 12RF Wegovy 1 mg/0.5 mL pen injector 1 mg subcut QWEEK Qty: 2 0RF Rx Instructions: administer weeks 9 through 12 of therapy Wegovy 1.7 mg/0.75 mL pen injector 1.7 mg subcut QWEEK Qty: 3 0RF Rx Instructions: administer weeks 13 through 16 of therapy Wegovy 2.4 mg/0.75 mL pen injector 2.4 mg subcut QWEEK Qty: 3 5RF Rx Instructions: start when 1.7 mg dosing finished Wegovy 0.5 mg/0.5 mL pen injector 0.5 mg subcut QWEEK Qty: 2 0RF Rx Instructions: administer weeks 5 through 8 of therapy Wegovy 0.25 mg/0.5 mL pen injector 0.25 mg subcut QWEEK Qty: 2 0RF Rx Instructions: administer weeks 1 through 4 of therapy Discontinued ibuprofen 800 mg tablet 800 mg PO Q8H PRN Discharge Instructions Instructions: Foot Sprain (ED) Additional Instructions: Ibuprofen 600 mg every 6 hours as needed for pain. Ice 20 minutes on and 20 minutes off for the next 24 to 72 hours. Recheck with your primary care doctor as needed. You may see black and blue over the next few days; do not worry about this. Return to ED for any concerns. Discharge Data Discharge Date/Time-TO BE ENTERED AT DEPARTURE: 11/22/22 12:26 Medical Decision Making Patient met no [place] foot rule criteria for x-ray. We discussed this extensively and he concurred. He will apply ice and take ibuprofen and Tylenol as needed for pain. HPI General Date/Time Provider Initiated Documentation: 11/22/22 11:53. 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 Patient missed stepped at work and twisted his foot. He had large heavy black boots on. He is able to ambulate on it. He denies ankle pain. He thinks he may have inverted it. He did not fall to the ground and denies any other trauma. There is no numbness or weakness. The pain is mild and aching. It does not radiate anywhere. This occurred just prior to arrival and is constant. He is limping. Related Data Home Medications Medication Instructions Recorded Confirmed amlodipine 5 mg tablet 5 mg PO DAILY #90 tabs 12/02/20 11/22/22 nitroglycerin 0.4 mg sublingual 0.4 mg sublingual Q5-15M PRN chest 01/22/21 11/22/22 tablet pain #25 tabs sertraline 50 mg tablet 50 mg PO DAILY #90 tabs 02/19/22 11/22/22 hydrochlorothiazide 25 mg tablet 25 mg PO DAILY #90 tabs 04/29/22 11/22/22 metoprolol succinate 100 mg 100 mg PO DAILY #90 tabs 04/29/22 11/22/22 tablet,extended release 24 hr rosuvastatin 40 mg tablet 40 mg PO DAILY #90 tabs 04/29/22 11/22/22 sildenafil (pulm.hypertension) 20 20 - 100 mg PO DAILY PRN sexual 05/15/22 11/22/22 mg tablet activity #30 tabs lisinopril 20 mg tablet 40 mg PO DAILY #180 tabs 08/06/22 11/22/22 metoprolol succinate 50 mg 50 mg PO DAILY #90 tabs 08/06/22 11/22/22 tablet,extended release 24 hr semaglutide (weight loss) 1 mg/0.5 1 mg (0.5 mL) subcut QWEEK #2 mL 10/05/22 11/22/22 mL subcutaneous pen injector (Wegovy) semaglutide (weight loss) 0.5 0.5 mg (0.5 mL) subcut QWEEK #2 mL 11/09/22 11/22/22 mg/0.5 mL subcutaneous pen injector (Wegovy) semaglutide (weight loss) 1.7 1.7 mg (0.75 mL) subcut QWEEK #3 mL 11/09/22 11/22/22 mg/0.75 mL subcutaneous pen injector (Wegovy) semaglutide (weight loss) 2.4 2.4 mg (0.75 mL) subcut QWEEK #3 mL 11/09/22 11/22/22 mg/0.75 mL subcutaneous pen injector (Wegovy) semaglutide (weight loss) 0.25 0.25 mg (0.5 mL) subcut QWEEK #2 mL 11/21/22 11/22/22 mg/0.5 mL subcutaneous pen injector (Wegovy) Previous Rx's Medication Instructions Recorded amlodipine 5 mg tablet 5 mg PO DAILY #90 tabs 12/02/20 nitroglycerin 0.4 mg sublingual 0.4 mg sublingual Q5-15M PRN chest 01/22/21 tablet pain #25 tabs sertraline 50 mg tablet 50 mg PO DAILY #90 tabs 02/19/22 hydrochlorothiazide 25 mg tablet 25 mg PO DAILY #90 tabs 04/29/22 metoprolol succinate 100 mg 100 mg PO DAILY #90 tabs 04/29/22 tablet,extended release 24 hr rosuvastatin 40 mg tablet 40 mg PO DAILY #90 tabs 04/29/22 sildenafil (pulm.hypertension) 20 20 - 100 mg PO DAILY PRN sexual 05/15/22 mg tablet activity #30 tabs lisinopril 20 mg tablet 40 mg PO DAILY #180 tabs 08/06/22 metoprolol succinate 50 mg 50 mg PO DAILY #90 tabs 08/06/22 tablet,extended release 24 hr semaglutide (weight loss) 1 mg/0.5 1 mg (0.5 mL) subcut QWEEK #2 mL 10/05/22 mL subcutaneous pen injector (Wegovy) semaglutide (weight loss) 0.5 0.5 mg (0.5 mL) subcut QWEEK #2 mL 11/09/22 mg/0.5 mL subcutaneous pen injector (Wegovy) semaglutide (weight loss) 1.7 1.7 mg (0.75 mL) subcut QWEEK #3 mL 11/09/22 mg/0.75 mL subcutaneous pen injector (Wegovy) semaglutide (weight loss) 2.4 2.4 mg (0.75 mL) subcut QWEEK #3 mL 11/09/22 mg/0.75 mL subcutaneous pen injector (Wegovy) semaglutide (weight loss) 0.25 0.25 mg (0.5 mL) subcut QWEEK #2 mL 11/21/22 mg/0.5 mL subcutaneous pen injector (Wegovy) Allergies Allergy/AdvReac Type Severity Reaction Status Date / Time Penicillins Allergy Unknown Unverified 11/22/22 11:28 General Stated Complaint: Orthopedic GARY: 4 Review of Systems Musculoskeletal Musculoskeletal: Reports other (Has foot pain left) Neurologic Neurologic: Denies localized weakness and Denies sensory deficit PFSH All Active Problems Injury of right index finger (Acute) Right foot sprain (Acute) Gynecomastia (Acute) Achilles tendonitis (Acute) Hair loss (Acute) Personal history of nicotine dependence (Acute) qui6 06/2021 Chest pain (Acute) Mid back pain on right side (Acute) Otitis media, left (Acute) Depression (Chronic) Blackout spell (Chronic) Seizure disorder (Chronic) Obstructive sleep apnea syndrome (Acute 12/08/15) Morbid obesity (Acute) Hyperlipidemia with target LDL less than 100 (Acute) Essential hypertension (Acute 03/28/13) Surgical History Tonsillectomy and adenoidectomy Family History Other Hypertension Social History Smoking/Tobacco Use Status: Current, status unknown Smokeless tobacco user: other (cigar) Quit status: quit date established Second Hand Exposure: Yes Smoking risk assessment performed?: Yes Alcohol Intake: current Alcohol Intake frequency: holidays/special occasions only Alcohol type: wine Drug use: Never Substance use type: former substance user and sedatives Household members: spouse and children Housing: house 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 What is your relationship status?: Panel score (0-1 are the most socially isolated patients): 1 Do you feel safe at home: Yes Do you feel safe in your relationship?: Yes Victim of physical abuse: No Victim of emotional abuse: No Victim of sexual abuse: No Exam Const General: comfortable, no acute distress, well developed and well groomed Orientation: alert and oriented x3 HENMT Head: normocephalic and atraumatic Eyes Conjunctivae: conjunctivae normal Neck Neck: supple Resp Effort & Inspection: normal respiratory effort Skin General skin exam: other (PWD) Neuro General: other (NVI distal left foot) Extrem Left lower extremity: normal to inspection, full ROM, normal capillary refill, ankle (NTP) and foot (NTP except gr toe-minor; no midfoot instability or prox 5th MT TTP) Details: normal capillary refill, normal to inspection, toes with normal ROM, no edema and motor-sensory exam (nl); no ecchymosis; no edema Course Vital Signs Vital signs: Vital Signs Temperature 36.7 C 11/22/22 11:25 Pulse 74 11/22/22 11:25 Respiratory Rate 18 11/22/22 11:25 Blood Pressure 141/99 H 11/22/22 11:25 Pulse Oximetry 99 11/22/22 11:25 Temperature 36.7 C 11/22/22 11:25 Temperature Source Temporal Artery Scan 11/22/22 11:25 Pulse 74 11/22/22 11:25 Respiratory Rate 18 11/22/22 11:25 Respiratory Effort Normal, Non-Labored 11/22/22 11:30 Blood Pressure 141/99 H 11/22/22 11:25 Blood Pressure Position Sitting 11/22/22 11:25 Pulse Oximetry 99 11/22/22 11:25 Oxygen Delivery Method Room Air 11/22/22 11:25 Oxygen Flow Rate 0 11/22/22 11:25 PAWSS Have you Been Recently Intoxicated or Drunk Within the Last 30 days?: No Have you Ever Experienced Previous Episodes of Alcohol Withdrawal?: No Have you ever Experienced Withdrawal Seizures?: No Have you ever Experienced Delirium Tremens(DT)s?: No Have you ever undergone Alcohol Rehabilitation Treatment (i.e, inpt ot outpatient treatment programs)?: No Have you ever Experienced Blackouts?: No Have you ever Combined Alcohol with other Downers within the last 90 days?: No Have you ever Combined Alcohol with any other Substance of Abuse during the last 90 days?: No Positive Blood Alcohol level on Presentation? [PCS.BAL]: No Evidence of Increased Autonomic Activity (i.e. HR>120, tremor, sweating, agitation, nausea)?: No Result: 0
== END 2022-11-22 12:26 | disposition home or self-care (01) ==
PROVIDERS: Emergency Provider Emergency Medicine; PCP Family Medicine
DX: S93.601A Unspecified sprain of right foot, initial encounter (principal); X58.XXXA Exposure to other specified factors, initial encounter
CPT/HCPCS: 99281; 99282

== ENCOUNTER 2023-02-23 07:40 | Emergency (ER) | payer BC, SELFPAY ==
[2023-02-23 07:45] VITALS: BP 164/94; PULSE 95; RESP 14; TEMP 36.8; O2SAT 99
--- NOTE | 2023-02-23 07:47 | ED.GENADUL_ITS ---
Discharge Plan Disposition Patient Disposition: Home Discharge Details Clinical Impression: Lymphadenitis Primary Care Provider: Oren Wade ED Provider: Castro Kelly Home Meds and New Rx's Prescriptions: New clindamycin HCl [Cleocin HCl] 300 mg capsule 300 mg PO TID 7 Days Qty: 21 0RF No Action sertraline 50 mg tablet 50 mg PO DAILY Qty: 90 3RF nitroglycerin 0.4 mg tablet, sublingual 0.4 mg sublingual Q5-15M PRN (Reason: chest pain) Qty: 25 0RF Rx Instructions: take as needed q 5 mins for c/p until gone if take 3 pills and pain persists, call metoprolol succinate 100 mg tablet extended release 24 hr 100 mg PO DAILY Qty: 90 3RF hydrochlorothiazide 25 mg tablet 25 mg PO DAILY Qty: 90 3RF metoprolol succinate 50 mg tablet extended release 24 hr 50 mg PO DAILY Qty: 90 3RF Rx Instructions: take with 100 mg to equal 150 mg/day lisinopril 20 mg tablet 40 mg PO DAILY Qty: 180 3RF amlodipine 5 mg tablet 5 mg PO DAILY Qty: 90 3RF rosuvastatin 40 mg tablet 40 mg PO DAILY Qty: 90 3RF Rx Instructions: start with half a tab/day for first week then take whole tab sildenafil (pulm.hypertension) 20 mg tablet 20 - 100 mg PO DAILY PRN (Reason: sexual activity) Qty: 30 12RF Wegovy 1 mg/0.5 mL pen injector 1 mg subcut QWEEK Qty: 2 0RF Rx Instructions: administer weeks 9 through 12 of therapy Wegovy 1.7 mg/0.75 mL pen injector 1.7 mg subcut QWEEK Qty: 3 0RF Rx Instructions: administer weeks 13 through 16 of therapy Wegovy 2.4 mg/0.75 mL pen injector 2.4 mg subcut QWEEK Qty: 3 5RF Rx Instructions: start when 1.7 mg dosing finished Wegovy 0.5 mg/0.5 mL pen injector 0.5 mg subcut QWEEK Qty: 2 0RF Rx Instructions: administer weeks 5 through 8 of therapy Wegovy 0.25 mg/0.5 mL pen injector 0.25 mg subcut QWEEK Qty: 2 0RF Rx Instructions: administer weeks 1 through 4 of therapy Discharge Instructions Instructions: Lymphadenopathy (ED) Additional Instructions: Take medications as prescribed. Can apply warm compress to the area. If symptoms worsen, you have difficulty speaking or swallowing, return to the emergency department. Otherwise please follow-up with your primary care physician to ensure resolution of the swelling. Stand Alone Forms: Work Release Medical Decision Making Emergent evaluation of lymphadenopathy. Initial differential includes lymphadenitis, lymphoma less likely, viral illness. He has no scratches or bites on his extremities, no obvious admit infection. Symptoms do likely seem consistent with a viral illness however he has fairly large lymphadenopathy. At this time I do feel he would benefit from antibiotic therapy. He is allergic to penicillin, so I will use clindamycin. Have advised that he take this medicatio n, apply warm compress. Follow-up closely with his primary care provider to ensure that his symptoms have improved. Strict return precautions advised to return to the emergency department as needed. HPI General Mode of arrival: ambulatory . Date/Time Provider Initiated Documentation: 02/23/23 07:46 . Limitations to Documentation: no limitations . Information obtained by: patient . HPI Narrative: 42-year-old gentleman with past medical history of hypertension, hyperlipidemia, obesity presents for evaluation of swollen lymph node. He noticed this 3 to 4 days ago. It is associated with fatigue. He denies any fever, sore throat, dental pain. He denies any change in voice he reports that he often gets very swollen lymph nodes when he gets sick. He reports that he was hospitalized for this as a child, but has never had any surgeries or procedures. Related Data Home Medications Medication Instructions Recorded Confirmed amlodipine 5 mg tablet 5 mg PO DAILY #90 tabs 12/02/20 11/22/22 nitroglycerin 0.4 mg sublingual 0.4 mg sublingual Q5-15M PRN chest 01/22/21 11/22/22 tablet pain #25 tabs hydrochlorothiazide 25 mg tablet 25 mg PO DAILY #90 tabs 04/29/22 11/22/22 metoprolol succinate 100 mg 100 mg PO DAILY #90 tabs 04/29/22 11/22/22 tablet,extended release 24 hr rosuvastatin 40 mg tablet 40 mg PO DAILY #90 tabs 04/29/22 11/22/22 sildenafil (pulm.hypertension) 20 20 - 100 mg PO DAILY PRN sexual 05/15/22 11/22/22 mg tablet activity #30 tabs lisinopril 20 mg tablet 40 mg PO DAILY #180 tabs 08/06/22 11/22/22 metoprolol succinate 50 mg 50 mg PO DAILY #90 tabs 08/06/22 12/02/22 tablet,extended release 24 hr semaglutide (weight loss) 1 mg/0.5 1 mg (0.5 mL) subcut QWEEK #2 mL 10/05/22 11/22/22 mL subcutaneous pen injector (Wegovy) semaglutide (weight loss) 0.5 0.5 mg (0.5 mL) subcut QWEEK #2 mL 11/09/22 11/22/22 mg/0.5 mL subcutaneous pen injector (Wegovy) semaglutide (weight loss) 1.7 1.7 mg (0.75 mL) subcut QWEEK #3 mL 11/09/22 11/22/22 mg/0.75 mL subcutaneous pen injector (Wegovy) semaglutide (weight loss) 2.4 2.4 mg (0.75 mL) subcut QWEEK #3 mL 11/09/22 11/22/22 mg/0.75 mL subcutaneous pen injector (Wegovy) semaglutide (weight loss) 0.25 0.25 mg (0.5 mL) subcut QWEEK #2 mL 11/21/22 11/22/22 mg/0.5 mL subcutaneous pen injector (Wegovy) sertraline 50 mg tablet 50 mg PO DAILY #90 tabs 12/02/22 12/02/22 clindamycin HCl 300 mg capsule 300 mg PO TID 7 days #21 caps 02/23/23 (Cleocin HCl) Previous Rx's Medication Instructions Recorded amlodipine 5 mg tablet 5 mg PO DAILY #90 tabs 12/02/20 nitroglycerin 0.4 mg sublingual 0.4 mg sublingual Q5-15M PRN chest 01/22/21 tablet pain #25 tabs hydrochlorothiazide 25 mg tablet 25 mg PO DAILY #90 tabs 04/29/22 metoprolol succinate 100 mg 100 mg PO DAILY #90 tabs 04/29/22 tablet,extended release 24 hr rosuvastatin 40 mg tablet 40 mg PO DAILY #90 tabs 04/29/22 sildenafil (pulm.hypertension) 20 20 - 100 mg PO DAILY PRN sexual 05/15/22 mg tablet activity #30 tabs lisinopril 20 mg tablet 40 mg PO DAILY #180 tabs 08/06/22 metoprolol succinate 50 mg 50 mg PO DAILY #90 tabs 08/06/22 tablet,extended release 24 hr semaglutide (weight loss) 1 mg/0.5 1 mg (0.5 mL) subcut QWEEK #2 mL 10/05/22 mL subcutaneous pen injector (Wegovy) semaglutide (weight loss) 0.5 0.5 mg (0.5 mL) subcut QWEEK #2 mL 11/09/22 mg/0.5 mL subcutaneous pen injector (Wegovy) semaglutide (weight loss) 1.7 1.7 mg (0.75 mL) subcut QWEEK #3 mL 11/09/22 mg/0.75 mL subcutaneous pen injector (Wegovy) semaglutide (weight loss) 2.4 2.4 mg (0.75 mL) subcut QWEEK #3 mL 11/09/22 mg/0.75 mL subcutaneous pen injector (Wegovy) semaglutide (weight loss) 0.25 0.25 mg (0.5 mL) subcut QWEEK #2 mL 11/21/22 mg/0.5 mL subcutaneous pen injector (Wegovy) sertraline 50 mg tablet 50 mg PO DAILY #90 tabs 12/02/22 clindamycin HCl 300 mg capsule 300 mg PO TID 7 days #21 caps 02/23/23 (Cleocin HCl) Allergies Allergy/AdvReac Type Severity Reaction Status Date / Time Penicillins Allergy Unknown Unverified 11/22/22 11:28 General GARY: 4 PFSH All Active Problems Lymphadenitis (Acute) Gynecomastia (Acute) Achilles tendonitis (Acute) Hair loss (Acute) Personal history of nicotine dependence (Acute) qui6 06/2021 Chest pain (Acute) Mid back pain on right side (Acute) Otitis media, left (Acute) Depression (Chronic) Blackout spell (Chronic) Seizure disorder (Chronic) Obstructive sleep apnea syndrome (Acute 12/08/15) Morbid obesity (Acute) Hyperlipidemia with target LDL less than 100 (Acute) Essential hypertension (Acute 03/28/13) Surgical History Tonsillectomy and adenoidectomy Family History Other Hypertension Social History Smoking/Tobacco Use Status: Current, status unknown Smokeless tobacco user: other (cigar) Quit status: quit date established Second Hand Exposure: Yes Smoking risk assessment performed?: Yes Alcohol Intake: current Alcohol Intake frequency: holidays/special occasions only Alcohol type: wine Drug use: Never Substance use type: former substance user and sedatives Household members: spouse and children Housing: house 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 What is your relationship status?: Panel score (0-1 are the most socially isolated patients): 1 Do you feel safe at home: Yes Do you feel safe in your relationship?: Yes Victim of physical abuse: No Victim of emotional abuse: No Victim of sexual abuse: No Exam Narrative Exam Narrative: Review of Systems: All systems reviewed & are unremarkable except as noted in HPI and below Exam: Const: Well-nourished, Well-developed, appearing stated age HEENT: NACT / Eyes: PERRL, no conjunctival injection, and symmetrical lids / EARS Atraumatic external nose and ears / MOUTH Moist MM,no dental infections apparent / NECK: right posterior auricular lymphadenopathy, no overlying skin changes, not significantly tender to palpation. Anterior cervical chain with multiple palpable lymph nodes. / THROAT oropharynx with slight erythema and tonsillar enlargement, no exudates CVS: RRR, No murmurs or gallops. Peripheral pulses 2+ and equal in all extremities. Brisk capillary refill in all extremities. RESP: Unlabored respiratory effort, Clear to auscultation bilaterally. No wheezes rales or rhonchi GI: Soft, Nontender/Nondistended, No hepatosplenomegaly. No guarding or rebound. : MSK: Extremities w/o deformity or TTP, No cyanosis or clubbing, full range of motion Skin: Warm, Dry. No rashes or lesions. 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 Sensation grossly intact, no focal neurologic deficits. Psych: (AAO) x3. Appropriate mood and affect
== END 2023-02-23 08:12 | disposition home or self-care (01) ==
PROVIDERS: Emergency Provider Emergency Medicine; PCP Family Medicine
DX: I88.9 Nonspecific lymphadenitis, unspecified (principal)
CPT/HCPCS: 99283; 99284

== ENCOUNTER 2023-04-21 02:50 | Outpatient (CLI) | payer BC, SELFPAY ==
[2023-04-21 13:11] LABS: Calculated LDL 244 mg/dL (<100); Cholesterol 311 mg/dL (<200); HDL Cholesterol 51 mg/dL (40-60); Triglyceride 82 mg/dL (<150)
[2023-04-29 15:15] LABS: Testosterone, Free 13.2 ng/dL (4.46-17.1); Testosterone, Total 324 ng/dL (240-950)
== END 2023-04-21 02:51 | disposition home or self-care (01) ==
LOC: LOS 02:50
PROVIDERS: PCP Family Medicine; Visit Provider Family Medicine
DX: Z00.00 Encounter for general adult medical examination without abnormal findings (principal); E78.5 Hyperlipidemia, unspecified
CPT/HCPCS: 36415; 80061; 84402; 84403

== ENCOUNTER 2023-10-20 05:34 | Outpatient (CLI) | payer BC, SELFPAY ==
[2023-10-20 14:18] LABS: CREATININE 1.1 mg/dL (0.70-1.30); Calculated LDL 198 mg/dL (<100); Cholesterol 273 mg/dL (<200); Estimated GFR 84.89 (mL/min/1.73m2); HDL Cholesterol 50 mg/dL (40-60); Potassium 3.3 mmol/L (3.5-5.1); Triglyceride 129 mg/dL (<150)
== END 2023-10-20 05:35 | disposition home or self-care (01) ==
LOC: LBO 05:34
PROVIDERS: PCP Family Medicine; Visit Provider Family Medicine
DX: I10 Essential (primary) hypertension (principal); E11.51 Type 2 diabetes mellitus with diabetic peripheral angiopathy without gangrene; E78.5 Hyperlipidemia, unspecified
CPT/HCPCS: 36415; 80061; 82565; 83036; 84132

== ENCOUNTER 2023-12-17 16:32 | Emergency (ER) | payer BC, SELFPAY ==
[2023-12-17 16:39] VITALS: BP 148/97; PULSE 95; RESP 18; TEMP 36.6; O2SAT 100
[2023-12-17] MEDS: Ondansetron O.D.T. 4 MG TABEF (17:00)
[2023-12-17 17:15] LABS: HCT 43.7 % (40.0-50.0); HGB 14.3 g/dL (13.5-17.5); MCH 29.4 pg (27.0-33.0); MCHC 32.7 % (32.0-36.0); MCV 90 fL (80-95); MPV 8.7 fL (8.0-11.0); Platelet Count 323 10^3/uL (130-400); RBC 4.86 10^6/uL (4.36-5.78); RDW 13.5 % (11.8-14.1); RDW-SD 45.1 fL; WBC 8.04 10^3/uL (4.4-10.8)
--- NOTE | 2023-12-17 17:35 | ED.GENADUL_ITS ---
Discharge Plan Disposition Patient Disposition: Home Discharge Details Clinical Impression: Nausea & vomiting Primary Care Provider: Oren Wade ED Provider: Perri Santana Home Meds and New Rx's Prescriptions: Continued nitroglycerin 0.4 mg tablet, sublingual 0.4 mg sublingual Q5-15M PRN (Reason: chest pain) Qty: 25 0RF Rx Instructions: take as needed q 5 mins for c/p until gone if take 3 pills and pain persists, call amlodipine 5 mg tablet 5 mg PO DAILY Qty: 90 3RF sildenafil (pulm.hypertension) 20 mg tablet 20 - 100 mg PO DAILY PRN (Reason: sexual activity) Qty: 30 12RF sertraline 50 mg tablet 50 mg PO DAILY Qty: 90 3RF ezetimibe 10 mg tablet 10 mg PO DAILY Qty: 90 3RF hydrochlorothiazide 25 mg tablet 25 mg PO DAILY Qty: 90 3RF Wegovy 0.25 mg/0.5 mL pen injector 0.25 mg subcut QWEEK Qty: 2 0RF Rx Instructions: administer weeks 1 through 4 of therapy lisinopril 20 mg tablet 40 mg PO DAILY Qty: 180 3RF Wegovy 1.7 mg/0.75 mL pen injector 1.7 mg subcut QWEEK Qty: 3 2RF Rx Instructions: administer weeks 13 through 16 of therapy Discharge Instructions Additional Instructions: Please call your primary care provider to schedule follow-up appointment and to change your medication dose. Your nausea and vomiting today was consistent with medication side effect from restarting the Wegovy, starting at a lower dose may be helpful in managing the side effect. You may use the Zofran provided for nausea/vomiting as needed. I recommend speaking with your primary care provider about obtaining a prescription for this if you continue to have nausea with the medication. Your labs today were all reassuring. I recommend that you stay well-hydrated, drinking plenty of Gatorlyte and Pedialyte throughout the day. Advance diet slowly as tolerated. Return to emergency care if you develop new severe abdominal pain, blood in your vomit, uncontrollable vomiting, or if you are very concerned and need to be rechecked again immediately Stand Alone Forms: Work Release Referrals: Oren Wade MD [Primary Care Provider] - [facility] General Date/Time Provider Initiated Documentation: 12/17/23 16:55 . HPI Narrative: Randal Vazquez is a 43-year-old male with history of GERD, hyperlipidemia, hypertension, and obesity who presents to the emergency department today for sudden onset of nausea/vomiting. He reports that last night around 9 PM he took his first dose of Wegovy after couple months hiatus due to supply chain issues. He was restarted at 1.7 mg, the starting from where he had last stopped. Approximately an hour and a half after taking medication he developed queasy feeling in his stomach and nausea/vomiting. He denies fever, congestion, sore throat, blood in stool or emesis, abdominal pain, chest pain, shortness of breath, change in bladder function. He did not have a BM today, yesterday had what is normal. Denies history of abdominal surgeries. Physical exam very reassuring. Patient is alert and oriented, no acute distress. Easy work of breathing, lung sounds clear bilaterally. Abdomen is soft, nondistended, nontender to palpation with normoactive bowel sounds. Moving all extremities equally. Moist mucous membranes. DDx includes but is not limited to: Medication side effect, pancreatitis, dehydration, electrolyte imbalance. No red flags concerning for bowel obstruction or acute intraabdominal pathology requiring emergent diagnostic imaging at this time. I interpreted the following tests: CBC, CMP, lipase all reassuring. While in the emergency department agreement received 4 mg p.o. Zofran with full improvement of nausea/vomiting. He was able to tolerate a full glass of water without difficulty. History and presentation today consistent with medication side effect. Reviewed discharge instructions with patient and his , including use of electrolyte rich beverages, slowly advancing diet, and following up with PCP for medication adjustments. A limited number of Zofran tablets were given for nausea/vomiting at home. Related Data Home Medications ?Medication ?Instructions ?Recorded ?Confirmed amlodipine 5 mg tablet 5 mg PO DAILY #90 tabs 12/02/20 08/19/23 nitroglycerin 0.4 mg sublingual 0.4 mg sublingual Q5-15M PRN chest 01/22/21 08/19/23 tablet pain #25 tabs sildenafil (pulm.hypertension) 20 20 - 100 mg (1 - 5 x 20 mg) PO 05/15/22 08/19/23 mg tablet DAILY PRN sexual activity #30 tabs sertraline 50 mg tablet 50 mg PO DAILY #90 tabs 03/15/23 08/19/23 ezetimibe 10 mg tablet 10 mg PO DAILY #90 tabs 04/21/23 08/19/23 hydrochlorothiazide 25 mg tablet 25 mg PO DAILY #90 tabs 06/07/23 08/19/23 semaglutide (weight loss) 0.25 0.25 mg (0.5 mL) subcut QWEEK #2 mL 08/23/23 mg/0.5 mL subcutaneous pen injector (Wegovy) lisinopril 20 mg tablet 40 mg (2 x 20 mg) PO DAILY #180 09/08/23 tabs semaglutide (weight loss) 1.7 1.7 mg (0.75 mL) subcut QWEEK #3 mL 11/22/23 mg/0.75 mL subcutaneous pen injector (Wegovy) Previous Rx's ?Medication ?Instructions ?Recorded amlodipine 5 mg tablet 5 mg PO DAILY #90 tabs 12/02/20 nitroglycerin 0.4 mg sublingual 0.4 mg sublingual Q5-15M PRN chest 01/22/21 tablet pain #25 tabs sildenafil (pulm.hypertension) 20 20 - 100 mg (1 - 5 x 20 mg) PO 05/15/22 mg tablet DAILY PRN sexual activity #30 tabs sertraline 50 mg tablet 50 mg PO DAILY #90 tabs 03/15/23 ezetimibe 10 mg tablet 10 mg PO DAILY #90 tabs 04/21/23 hydrochlorothiazide 25 mg tablet 25 mg PO DAILY #90 tabs 06/07/23 semaglutide (weight loss) 0.25 0.25 mg (0.5 mL) subcut QWEEK #2 mL 08/23/23 mg/0.5 mL subcutaneous pen injector (Wegovy) lisinopril 20 mg tablet 40 mg (2 x 20 mg) PO DAILY #180 09/08/23 tabs semaglutide (weight loss) 1.7 1.7 mg (0.75 mL) subcut QWEEK #3 mL 11/22/23 mg/0.75 mL subcutaneous pen injector (Wegovy) Allergies Allergy/AdvReac Type Severity Reaction Status Date / Time Penicillins Allergy Unknown Unknown Unverified 12/17/23 16:41 metoprolol AdvReac Intermediate palpitation Verified 12/17/23 16:41 s General Stated Complaint: Nausea/Vomit/Diar GARY: 3 Review of Systems Narrative: see HPI Exam Const General: cooperative, healthy appearing, comfortable, no acute distress, well developed and well groomed [facility] Mouth: moist mucous membranes Neck Neck: normal visual inspection, full ROM and no lymphadenopathy Cardio Rate: regular rate Rhythm: regular rhythm GI Inspection: normal to inspection and non-distended Palpation: soft and nontender Auscultation: normal bowel sounds Extrem General: normal to inspection Course Vital Signs Vital signs: Vital Signs Temperature 36.6 C 12/17/23 16:39 Pulse 95 H 12/17/23 16:39 Respiratory Rate 18 12/17/23 16:39 Blood Pressure 148/97 H 12/17/23 16:39 Pulse Oximetry 100 12/17/23 16:39 Temperature 36.6 C 12/17/23 16:39 Pulse 95 H 12/17/23 16:39 Respiratory Rate 18 12/17/23 16:39 Blood Pressure 148/97 H 12/17/23 16:39 Pulse Oximetry 100 12/17/23 16:39 Lab/Test Results Lab/Test Results: Laboratory Tests Range/Units 12/17/23 17:08 WBC (4.4-10.8) 10^3/uL 8.04 RBC (4.36-5.78) 10^6/uL 4.86 Hgb (13.5-17.5) g/dL 14.3 Hct (40.0-50.0) % 43.7 MCV (80-95) fL 90 MCH (27.0-33.0) pg 29.4 MCHC (32.0-36.0) % 32.7 RDW (11.8-14.1) % 13.5 Plt Count (130-400) 10^3/uL 323 MPV (8.0-11.0) fL 8.7 Medical Decision Making Quality:SDOH Health Related Social Needs: No Data to Display PFSH All Active Problems (Updated 12/17/23 @ 17:50 by Perri Gallego) Nausea & vomiting (Acute) GERD (gastroesophageal reflux disease) (Chronic) Gynecomastia (Acute) Achilles tendonitis (Acute) Hair loss (Acute) Personal history of nicotine dependence (Acute) qui6 06/2021 Chest pain (Acute) Mid back pain on right side (Acute) Otitis media, left (Acute) Depression (Chronic) Blackout spell (Chronic) Seizure disorder (Chronic) Obstructive sleep apnea syndrome (Acute 12/08/15) Morbid obesity (Acute) Hyperlipidemia with target LDL less than 100 (Acute) Essential hypertension (Acute 03/28/13) Surgical History Tonsillectomy and adenoidectomy Family History Other Hypertension Social History Smoking/Tobacco Use Status: Current, status unknown Smokeless tobacco user: other (cigar) Quit status: quit date established Second Hand Exposure: Yes Smoking risk assessment performed?: Yes Alcohol Intake: current Alcohol Intake frequency: holidays/special occasions only Alcohol type: wine Drug use: Never Substance use type: former substance user and sedatives Household members: spouse and children Housing: house 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
[2023-12-17 17:36] LABS: ALT 43 U/L (16-63); AST 22 U/L (15-37); Albumin 3.7 g/dL (3.4-5.0); Alkaline Phosphatase 67 U/L (46-116); Anion Gap 8.5 mmol/L (3-11); BUN 13 mg/dL (7-18); CO2 29.5 mmol/L (21.0-32.0); CREATININE 1.1 mg/dL (0.70-1.30); Calcium 9.1 mg/dL (8.5-10.1); Chloride 104 mmol/L (98-107); Estimated GFR 84.37 (mL/min/1.73m2); Glucose 89 mg/dL (74-106); Lipase 53 U/L (16-77); Potassium 3.7 mmol/L (3.5-5.1); Sodium 142 mmol/L (136-145); Total Protein 7.4 g/dL (6.4-8.2)
[2023-12-17] MEDS: Ondansetron O.D.T. 4 MG TABEF PO (18:02)
[2023-12-17] MEDS: Ondansetron O.D.T. 4 MG TABEF, 3 TABS/BTL PO (18:03)
--- NOTE | 2023-12-17 18:15 | RT.EKG_ITS ---
APPROVED REPORT Exam: Resting ECG Reason for Exam: r/o QT prolongation Patient Location: E HR:63 bpm ECG Measurements Heart Rate 63 AXIS NH 194 P 14 QRSd 118 QRS 78 QT 402 T 2 QTc 413 Conclusion Sinus rhythm...normal P axis, V-rate 60- 99 Nonspecific intraventricular conduction delay...QRSd >115mS, not LBBB/RBBB Borderline ST elevation, anterolateral leads...ST >0.06mV, I aVL V2-V6
[2023-12-17] MEDS: Normal Saline 1,000 ML 1000 ML IV (18:31)
[2023-12-17] MEDS: Prochlorperazine 10 MG/2 ML VIAL 5 MG IVP (18:54)
[2023-12-17 19:45] VITALS: BP 138/105; PULSE 93; RESP 14; O2SAT 99
== END 2023-12-17 22:48 | disposition home or self-care (01) ==
LOC: ER 17:51 → RED 22:48
PROVIDERS: Emergency Provider Nurse Practitioner Family; PCP Family Medicine
DX: R11.2 Nausea with vomiting, unspecified (principal); I10 Essential (primary) hypertension; E78.5 Hyperlipidemia, unspecified; E66.01 Morbid (severe) obesity due to excess calories; F17.290 Nicotine dependence, other tobacco product, uncomplicated; Z79.85 Long-term (current) use of injectable non-insulin antidiabetic drugs
CPT/HCPCS: 80053; 83690; 85027; 93005; 96374; 99284; 93010; 99283; J0780

== ENCOUNTER 2024-04-05 08:08 | Day surgery (SDC) | payer BC, SELFPAY ==
--- NOTE | 2024-04-04 16:33 | W.PM.DSUDISC ---
Date of service: 04/05/24 Time of Service: 11:36 Discharge Plan Disposition Patient Disposition: Home Condition: Good Discharge Details Reason For Visit: Screening colonoscopy Attending Provider: Taran Nieves Primary Care Provider: Oren Wade Home Meds and New Rx's Prescriptions: Continued nitroglycerin 0.4 mg tablet, sublingual 0.4 mg sublingual Q5-15M PRN (Reason: chest pain) Qty: 25 0RF Rx Instructions: take as needed q 5 mins for c/p until gone if take 3 pills and pain persists, call MD evangelistaglutide (weight loss) 0.5 mg/0.5 mL pen injector 0.5 mg subcut QWEEK Qty: 2 0RF amlodipine 5 mg tablet 5 mg PO DAILY Qty: 90 3RF ezetimibe 10 mg tablet 10 mg PO DAILY Qty: 90 3RF hydrochlorothiazide 25 mg tablet 25 mg PO DAILY Qty: 90 3RF lisinopril 20 mg tablet 40 mg PO DAILY Qty: 180 3RF sertraline 50 mg tablet 50 mg PO DAILY Qty: 90 3RF sildenafil (pulm.hypertension) 20 mg tablet 20 - 100 mg PO DAILY PRN (Reason: sexual activity) Qty: 30 12RF Discontinued bisacodyl [Dulcolax (bisacodyl)] 5 mg tablet,delayed release (DR/EC) 5 mg PO ONCE Qty: 4 0RF Rx Instructions: Take per colonoscopy instructions provided by ordering providers office polyethylene glycol 3350 17 gram/dose powder 17 g PO ONCE Qty: 238 0RF Rx Instructions: Take per colonoscopy instructions provided by ordering providers office Discharge Instructions Instructions: Colon polyps Additional Instructions: George, is a pleasure meeting you today, and I hope you are comfortable during your colonoscopy. Everything went very smoothly. I did find to remove for polyps today. All of these were quite small, and none of them appear worrisome to the naked eye. Regardless, I will send these off to the pathologist for testing since polyps, different varieties, and the nature of the polyps guides us with regards to the timing of the next colonoscopy. Those results usually take a week or so, but as soon as the office has them, we will be in touch with those recommendations. If you need anything, or have any questions in the meantime, please do not hesitate to ask. 1. If tolerated, consume a soft, low fiber diet for 1-2 days. [address] not drive, drink alcohol, operate machinery, make critical decisions, or do activities that require coordination or balance for 24 hours. 3. Because air was put into your colon during the procedure, expelling air from your rectum (passing gas or farting) is normal. 4. You may not have a bowel movement for 1-3 days because of the colonoscopy prep. This is normal. 5. Go directly to the emergency room if you notice any of the following: Develop chills (warm to touch), or if you have a thermometer and your temperature is above 101 Difficulty breathing or difficultly swallowing Persistent vomiting Severe abdominal pain, other than gas cramps Severe chest pain Black, tarry stools Any bleeding ? exceeding one tablespoon 6. Call your physician if the site where your intravenous was started becomes red, swollen, painful, and warm to touch. 7. Your physician has reviewed your pre-procedure medications. Please continue to take those medications as previously ordered. You will be given specific information/education regarding any changes to your medications before leaving. Activity:: Activity as Tolerated Diet:: As Tolerated Discharge Orders Discharge Orders: Discharge Order (Routine); Ordered 04/04/24 Ordered By: Taran Nieves DS: Diagnosis Discharge Diagnosis (1) Encounter for screening colonoscopy: Status: Acute Asessment and Plan: Follow-up on polypectomy results
--- NOTE | 2024-04-04 16:35 | W.COLOREPORT ---
Date of service: 04/05/24 Time of Service: 11:37 Colonoscopy Report Date of procedure: 04/05/24 Pre-op diagnosis general: Screening colonoscopy Post-op diagnosis procedure note: other (Colon polyps) Procedure: Colonoscopy with polypectomy Surgeon: Taran Nieves Anesthesia Type: General:No Airway Estimated blood loss (mL): 5 Pathology: other (0.25 cm polyps at 25 cm x 2 (sent as a single specimen) 0.25 cm polyp at 30 cm, 0.25 cm cecal polyp) Complications: None Disposition: same day Indications: George is a 43-year-old male who needs a screening colonoscopy Prep: Miralax/Dulcolax Procedure Start Time: 10:47 Procedure End Time: 11:15 Retraction Time: 13 Findings: 0.25 cm polyps at 25 cm x 2 (sent as a single specimen) 0.25 cm polyp at 30 cm, 0.25 cm cecal polyp Procedure Description: After the induction of anesthesia, and with the patient in left lateral decubitus position, I began by performing an external anorectal exam.? Perineum and skin were normal, as was the anal verge.? There was no evidence of external hemorrhoids.? Next, I performed a digital rectal exam.? I did appreciate any abnormal findings.? Next, I advanced a colonoscope into the rectal vault.? I performed retroflexion.? This appeared normal.? Using insufflation, I then advanced the colonoscope beyond the rectal folds and into the sigmoid colon before advancing towards the cecum.? Around 25 cm from the anal verge were 2 small polyps. These were each less than 0.25 cm. Both were flat. I removed both of these with cold forceps, and they were sent as a single specimen. There is minimal bleeding from the site..? The scope was noted to be in the cecum by identification of the ileocecal valve and appendiceal orifice.? Just a few centimeters away from the appendiceal orifice was a 0.25 cm flat polyp. This was also removed with cold forceps with no issue. I then began withdrawing the colonoscope using repeated irrigation as necessary for full evaluation of the colonic mucosa. 1 other polyp was found around 30 cm from the anal verge. This was also flat and about 0.25 cm in size. This was also removed with cold forceps in a manner similar to all the others. The polypectomy site looked fine after the specimen was retrieved. Once the scope was withdrawn to the level of the rectum, great care was taken to examine portions of the rectal folds.? Finally, the scope was withdrawn and the patient was brought to the same-day surgery recovery unit as the anesthetic wore off. ?The findings and instructions were shared with the patient prior to discharge. Sugar Tree Bowel Prep Sugar Tree Bowel Prep Right Colon: 2 Left Colon: 3 Transverse Colon: 2 Total Score: 7
[2024-04-05 08:29] VITALS: BP 146/95; PULSE 82; RESP 20; TEMP 36.5; O2SAT 99
[2024-04-05 08:33] VITALS: BP 146/95; PULSE 82; RESP 20; TEMP 36.5; O2SAT 99
[2024-04-05] MEDS: Normal Saline Flush 10 ML SYR IV (08:45)
--- NOTE | 2024-04-05 10:15 | W.ANESPRE ---
General Info Date of Service Date Performed: 04/05/24 Height: 6 ft Weight: 141.067 kg Body Mass Index (BMI): 42.1 Surgical Procedure: Operation Date: 04/05/24 09:35 Proposed Procedure Side Surgeon brissa Nieves MD Meds Allergies and Home Medications Allergies Allergy/AdvReac Type Severity Reaction Status Date / Time Penicillins Allergy Unknown Unknown Unverified 03/06/24 08:04 metoprolol AdvReac Intermediate palpitation Verified 03/06/24 08:04 s Home Medication ?Medication ?Instructions ?Recorded amlodipine 5 mg tablet 5 mg PO DAILY #90 tabs 12/02/20 nitroglycerin 0.4 mg sublingual 0.4 mg sublingual Q5-15M PRN chest 01/22/21 tablet pain #25 tabs ezetimibe 10 mg tablet 10 mg PO DAILY #90 tabs 04/21/23 hydrochlorothiazide 25 mg tablet 25 mg PO DAILY #90 tabs 06/07/23 lisinopril 20 mg tablet 40 mg (2 x 20 mg) PO DAILY #180 09/08/23 tabs semaglutide (weight loss) 0.5 0.5 mg (0.5 mL) subcut QWEEK #2 mL 12/30/23 mg/0.5 mL subcutaneous pen injector sertraline 50 mg tablet 50 mg PO DAILY #90 tabs 02/16/24 sildenafil (pulm.hypertension) 20 20 - 100 mg (1 - 5 x 20 mg) PO 02/16/24 mg tablet DAILY PRN sexual activity #30 tabs Current Visit Medications: Current Medications Generic Name Dose Route Start Last Admin Trade Name Freq PRN Reason Stop Dose Admin IV Miscellaneous Supplies 1 each 04/05/24 06:00 Iv Access IV 05/04/24 23:59 DIRECTED ELMER Ondansetron HCl 4 mg 04/04/24 16:36 Ondansetron 4 Mg/2 Ml Vial IVP 05/04/24 16:35 Q4H PRN PRN Nausea / Vomiting Sodium Chloride 0 ml 04/05/24 06:00 04/05/24 08:45 Normal Saline Flush 10 Ml Syr IV 05/04/24 23:59 10 ml PRN PRN Administration Sodium Chloride 0 ml 04/05/24 06:00 Normal Saline 10 Ml Vial IJ 05/04/24 23:59 DIRECTED PRN Sterile Water 0 ml 04/05/24 06:00 Water,Injection,Sterile 10 Ml Vial IJ 05/04/24 23:59 DIRECTED PRN PFSH Active Problems Active Problems: Problem Status Onset Code Encounter for screening colonoscopy Acute Z12.11 GERD (gastroesophageal reflux disease) Chronic K21.9 Gynecomastia Acute N62 Achilles tendonitis Acute M76.60 Hair loss Acute L65.9 Personal history of nicotine dependence Acute Z87.891 Chest pain Acute R07.9 Mid back pain on right side Acute M54.9 Otitis media, left Acute H66.92 Depression Chronic F32.9 Blackout spell Chronic R55 Seizure disorder Chronic G40.909 Obstructive sleep apnea syndrome Acute 12/08/15 G47.33 Morbid obesity Acute E66.01 Hyperlipidemia with target LDL less than 100 Acute E78.5 Essential hypertension Acute 13 I10 Surgical History Surgical History (Updated 04/04/24 @ 09:30 by Janell Sterling RN) H/O left wrist surgery Tonsillectomy and adenoidectomy Tobacco Smoking/Tobacco Use Status: Current-Occasional Tobacco Type: cigarettes Smokeless tobacco user: other (cigar) Passive smoking exposure: Yes Second hand exposure: Yes Alcohol Alcohol Intake: current Alcohol intake frequency: holidays/special occasions only Alcohol type: wine Substance Use Substance use: Socially Substance use type: former substance user and marijuana Vital Signs and Lab Results Vital Signs Most Recent Vital Signs in EMR: Most Recent Vital Signs Temp Pulse Resp BP Pulse Ox 36.5 C 82 20 146/95 H 99 04/05/24 08:33 04/05/24 08:33 04/05/24 08:33 04/05/24 08:33 04/05/24 08:33 Lab Results Blood Type / Crossmatch: No Data to Display Complete Blood Count: No Data to Display Complete Metabolic Panel: No Data to Display Liver Function Panel: No Data to Display Coagulation Panel: No Data to Display Cardiac Panel: No Data to Display Arterial Blood Gas: No Data to Display Venous Blood Gas: No Data to Display Pancreas Panel: No Data to Display Thyroid Panel: No Data to Display Infectious Disease: No Data to Display Blood Cultures: No Data to Display Toxicology Panel: No Data to Display Imaging and Studies Imaging and Studies Study information below may be from another EMR and interpreted by another provider. Please see original notes in EMR for more complete details. EKG Summary: Conclusion Sinus rhythm...normal P axis, V-rate 60- 99 Nonspecific intraventricular conduction delay...QRSd >115mS, not LBBB/RBBB Borderline ST elevation, anterolateral leads...ST >0.06mV, I aVL V2-V6 Stress Test Summary: MPI Conclusion Normal myocardial perfusion. There is no evidence of ischemia or prior infarction. EF 56%, normal wall motion Anesthesia Assessment and Plan Anesthesia History Personal History: No History of Anesthesia Complications Family History: No Family History of Anesthesia Complications Exercise Tolerance Exercise Tolerance: Metabolic Equivalents>4 Pertinent Negatives Pertinent Negatives: No Symptoms of GERD, No Major Cardiovascular Symptoms or Complaints and No Major Pulmonary Symptoms or Complaints Cardiac & Pulmonary Exam Cardiac Exam: Normal S1/S2 Heart Sounds Pulmonary Exam: Clear Bilateral Breath Sounds Implantable Cardiac Device Does patient have a Pacemaker or an ICD?: No Airway Exam Known Difficult Airway: No Mallampati Class: 1 Mouth Opening: Normal (> 3cm) Thyromental Distance: Greater than 3 cm Neck Range of Motion: Full ROM Neck Circumference: Normal Teeth Condition: Normal Dentition ASA Classification ASA Score: ASA 2 Emergency Case?: No NPO Status NPO Status: NPO Clears >2 hours, Solids >8 hours Anesthesia Plan Resuscitation Status: Full Code Anesthesia Technique: General Anesthesia Airway Planned: Natural Airway Monitors Used: Standard Monitors Preoperative Comments:: Last seizure approximately 4/year/ago, on no preventative medications. GERD is well controlled.
[2024-04-05 10:34] VITALS: BMI 42.1
--- NOTE | 2024-04-05 10:51 | BOWEL_PTH ---
PATIENT: George Rivas JR LOC: [facility] U#:[id number] AGE/SX: 43/M ROOM: RE04/05/[address]: Taran Nieves MD : 1980 BED: DIS: 04/05/2024 SPEC #: [id number] RECD: 04/05/24 13:17 STATUS: TRIP RE #: [id number] JAYLYN: 04/05/24 10:[address]: Taran Nieves DEPT: Surgical Specimen RECD BY: Judith Hartman ENTERED: 04/05/24 13:19 SP TYPE: Bowel OTHR DR: Oren Wade MD Tissues: 1 - BIOPSY BOWEL 2 - BIOPSY BOWEL 3 - BIOPSY BOWEL Procedures: GROSS AND MICRO LEVEL 4 Comments: [id number]
[2024-04-05 11:25] VITALS: BP 130/91; PULSE 69; RESP 16; TEMP 36.4; O2SAT 100
[2024-04-05 11:58] VITALS: BP 131/90; PULSE 61; RESP 16; TEMP 36.6; O2SAT 99
--- NOTE | 2024-04-05 13:19 | W.ANESPOSTOP ---
Postoperative Evaluation Date, Time and Location Date Performed: 04/05/24 Time Performed: 12:00 Patient Location: Day Surgery Unit Vital Signs Most Recent Imported Vital Signs: Most Recent Vital Signs Temp Pulse Resp BP Pulse Ox 36.6 C 61 16 131/90 99 04/05/24 11:58 04/05/24 11:58 04/05/24 11:58 04/05/24 11:58 04/05/24 11:58 Pain Score Most Recent Pain Score: Most Recent Pain Score Pain Level 0 04/05/24 11:58 Assessment Mental Status: Awake (Alert & Oriented to Patient Baseline) Airway and Respiratory Function: Patent airway with normal (patient baseline) respiratory exam Cardiovascular Function: Hemodynamically Stable Hydration Status: Adequately Hydrated Nausea & Vomiting: No Nausea or Vomiting Pain: Pt. Denies Any Pain Peripheral Nerve Block: Patient did not receive a nerve block
== END 2024-04-05 12:10 | disposition home or self-care (01) ==
LOC: SUR 08:09
PROVIDERS: PCP Family Medicine; Visit Provider Surgery
PROC: 0DJD8ZZ Inspection of Lower Intestinal Tract, Via Natural or Artificial Opening Endoscopic (ICD-10-PCS; CPT 45378; principal; 2024-04-05 09:30)
DX: Z12.11 Encounter for screening for malignant neoplasm of colon (principal); I10 Essential (primary) hypertension; K63.5 Polyp of colon
CPT/HCPCS: 45380; 88305; J2704

== ENCOUNTER 2024-05-15 01:46 | Outpatient (CLI) | payer BC, SELFPAY ==
--- NOTE | 2024-05-15 07:15 | DI.RAD_ITS ---
Exam(s) XR SHOULDER LT COMPLETE 2+V EXAM: XR SHOULDER LT COMPLETE 2+V CLINICAL HISTORY: left shoulder pain,M25.512. TECHNIQUE: 2D digital imaging was performed. Four views. COMPARISON: No exams were available for comparison FINDINGS: BONES: No acute fracture is present. No bony destructive lesion is seen. JOINTS: No dislocation present. Mild degenerative changes at the AC joint. Minimal spurring at the glenoid. Glenohumeral joint space is maintained. SOFT TISSUE: Small calcification noted adjacent to greater tuberosity could indicate calcific tendino sis. IMPRESSION: Mild degenerative changes and calcific tendinosis. DATA REPOSITORY: RADIATION DOSE DELIVERED:
--- NOTE | 2024-05-15 07:15 | DI.RAD_ITS ---
Exam(s) XR LUMBAR SPINE COMPLETE EXAM: XR LUMBAR SPINE COMPLETE CLINICAL HISTORY: left low back pain with radiation into left leg,M54.9. TECHNIQUE: 2D digital imaging was performed. Five views. COMPARISON: No exams were available for comparison FINDINGS: BONES: No fracture or destructive lesion. Vertebral body heights are maintained. facet hypertroph y identified L4-5 and L5-S1.. DISKS: Mild narrowing of the L4-5 and L5-S1 disc spaces. Intervertebral disc spaces are maintained . ALIGNMENT: No scoliosis. Slight degenerative spondylolisthesis secondary to facet degenerative [place] es at L4-5. SOFT TISSUE: Normal. IMPRESSION: [id number] degenerative changes at L4-5 and L5-S1 DATA REPOSITORY: RADIATION DOSE DELIVERED:
== END 2024-05-15 02:06 ==
LOC: DI 01:46
PROVIDERS: PCP Family Medicine; Visit Provider Family Medicine
DX: M19.012 Primary osteoarthritis, left shoulder (principal); M51.372 Other intervertebral disc degeneration, lumbosacral region with discogenic back pain and lower extremity pain
CPT/HCPCS: 72110; 73030

== ENCOUNTER 2024-06-30 00:02 | Outpatient (CLI) | payer BC, SELFPAY ==
--- NOTE | 2024-06-30 06:30 | DI.MRI_ITS ---
Exam(s) MR LUMBAR SPINE WO EXAM: MR LUMBAR SPINE WO CLINICAL HISTORY: left low back pain, s/p fall with left leg pain,m54.50. TECHNIQUE: Multiplanar multisequence MRI of the Lumbar spine was performed. COMPARISON: CR XR LUMBAR SPINE COMPLETE from 05/15/2024 FINDINGS: Conus medullaris is at normal level. There is no evidence of conus mass nor subjacent clumping of in trathecal nerve roots to suggest arachnoiditis. The distal thecal sac appears unremarkable.There is no evidence of Tarlov intrasacral cysts nor other significant findings within the sacral canal Bones:There are no fractures nor ominous osseous lesions in the lumbar vertebral bodies and visualize d sacrum. With respect to the individual levels... T12-L1: Unremarkable L1-2: Normal disc height and signal. No disc herniation nor central canal stenosis.No foraminal steno sis L2-3: Normal disc height. No disc herniation nor central canal stenosis.No foraminal stenosis.No face t arthropathy. L3-4: Normal disc height. No disc herniation or central canal stenosis.No foraminal stenosis.No face t arthropathy. L4-5: There is some asymmetric disc space narrowing the right side of this disc space. There is no f ocal disc herniation. There is, however, mild degenerative anterolisthesis of L4 upon L5 related to significant bilateral facet arthropathy at this level. There is symmetrical mild annular bulging. T here is moderate-severe central spinal canal stenosis due to the mild anterolisthesis of L4 upon L5, mild annular bulging, short AP dimensions of the pedicles and facet arthrosis. In addition, there is some mild lipomatosis of the posterior epidural space which also impresses upon the posterior aspect of the thecal sac at this level. There is no foraminal stenosis on either side at this level. L5-S1: This level exhibits mild disc space narrowing. No focal disc herniation or central canal sten osis. There are minimal degenerative changes in the facet joints. No significant foraminal stenosis on either side Soft tissues: paraspinal soft tissues appear unremarkable. IMPRESSION: 1. The main findings here are at the L4-5 level with significant central spinal canal stenosis due to multiple factors as discussed above. There is also mild anterolisthesis of L4 upon L5 related to ad vanced facet degenerative changes at this level. There are no pars defects. There is no foraminal s tenosis on either side at this level. DATA REPOSITORY:
== END 2024-06-30 00:22 ==
LOC: DI 00:02
PROVIDERS: PCP Family Medicine; Visit Provider Family Medicine
DX: M48.02 Spinal stenosis, cervical region (principal)
CPT/HCPCS: 72148

== ENCOUNTER 2025-04-04 05:24 | Emergency (ER) | payer BC, SELFPAY ==
[2025-04-04 05:33] VITALS: BP 183/105; PULSE 79; RESP 16; TEMP 36.5; O2SAT 99
[2025-04-04 05:38] VITALS: BP 183/105; PULSE 79; RESP 16; TEMP 36.5; O2SAT 99
--- NOTE | 2025-04-04 05:52 | ED.GENADUL_ITS ---
Discharge Plan Disposition Patient Disposition: Home Condition: Good Discharge Details Clinical Impression: URI (upper respiratory infection) Primary Care Provider: Oren Wade ED Provider: Rex Phelps Home Meds and New Rx's Prescriptions: New benzonatate 100 mg Capsule 100 mg PO TID PRN (Reason: Cough) Qty: 20 0RF Continued nitroglycerin 0.4 mg tablet, sublingual 0.4 mg sublingual Q5-15M PRN (Reason: chest pain) Qty: 25 0RF Rx Instructions: take as needed q 5 mins for c/p until gone if take 3 pills and pain persists, call hydrochlorothiazide 25 mg tablet 25 mg PO DAILY Qty: 90 3RF sildenafil (pulm.hypertension) 20 mg tablet 20 - 100 mg PO DAILY PRN (Reason: sexual activity) Qty: 30 12RF sertraline 50 mg tablet 50 mg PO DAILY Qty: 90 3RF lisinopril 20 mg tablet 40 mg PO DAILY Qty: 180 3RF No Action semaglutide (weight loss) 1 mg/0.5 mL pen injector 1 mg subcut QWEEK Qty: 2 0RF Discharge Instructions Instructions: Upper Respiratory Infection ED Additional Instructions: You were seen for cough and cold symptoms over the last 3 days. Your exam and vital signs are reassuring. I have prescribed a cough medicine to help with your cough especially at night. You may use Afrin 12-hour nasal spray for 3 days to help with your congestion. Do not use this past to 3 days limit. Rest and drink plenty of fluids. Follow-up with primary care next week if not improving. Return to ED for any difficulty breathing, chest pain, mental status change, other concerns. Stand Alone Forms: Portal Information, Work Release Referrals: Oren Wade MD [Primary Care Provider, Medicine] [facility] General Mode of arrival: ambulatory . Date/Time Provider Initiated Documentation: 04/04/25 05:46 . Limitations to Documentation: no limitations . Information obtained by: patient and RN notes reviewed . HPI Narrative: Patient presents to ED with cough and URI symptoms for the last 3 days. He has been having difficulty sleeping because of the cough and congestion. He has been taking DayQuil and [id number] cold medicine without significant relief. Denies headache, earache, sore throat. Complains of sinus pressure and congestion. Has a dry cough but denies any chest pain or shortness of breath. Denies any GI symptoms. He has not been vaccinated for influenza or COVID this year. He reports occasional smoking but not regularly and no history of lung disease. Related Data Home Medications ?Medication ?Instructions ?Recorded ?Confirmed nitroglycerin 0.4 mg sublingual 0.4 mg sublingual Q5-1 5M PRN chest 01/22/21 04/04/25 tablet pain #25 tabs sildenafil (pulm.hypertension) 20 20 - 100 mg (1 - 5 x 20 mg) PO 02/16/24 04/04/25 mg tablet DAILY PRN sexual activity #3 0 tabs hydrochlorothiazide 25 mg tablet 25 mg PO DAILY #90 ta bs 05/04/24 04/04/25 semaglutide (weight loss) 1 mg/0.5 1 mg (0.5 mL) subcu t QWEEK #2 mL 06/01/24 06/01/24 mL subcutaneous pen injector sertraline 50 mg tablet 50 mg PO DAILY #90 tabs 11/1404/04/25 lisinopril 20 mg tablet 40 mg (2 x 20 mg) PO DAILY # 180 12/27/24 04/04/25 tabs benzonatate 100 mg capsule 100 mg PO TID PRN Cough #20 caps 04/04/25 Previous Rx's ?Medication ?Instructions ?Recorded nitroglycerin 0.4 mg sublingual 0.4 mg sublingual Q5-1 5M PRN chest 01/22/21 tablet pain #25 tabs sildenafil (pulm.hypertension) 20 20 - 100 mg (1 - 5 x 20 mg) PO 02/16/24 mg tablet DAILY PRN sexual activity #3 0 tabs hydrochlorothiazide 25 mg tablet 25 mg PO DAILY #90 ta bs 05/04/24 semaglutide (weight loss) 1 mg/0.5 1 mg (0.5 mL) subcu t QWEEK #2 mL 06/01/24 mL subcutaneous pen injector sertraline 50 mg tablet 50 mg PO DAILY #90 tabs 11/14 09/08 lisinopril 20 mg tablet 40 mg (2 x 20 mg) PO DAILY # 180 12/27/24 tabs benzonatate 100 mg capsule 100 mg PO TID PRN Cough #20 caps 04/04/25 Allergies Allergy/AdvReac Type Severity Reaction Status Date / Time Penicillins Allergy Unknown Unknown Unverified 04/04/25 05:41 metoprolol AdvReac Intermediate palpitation Verified 04/04/25 05:41 s General Stated Complaint: RespSymp GARY: 4 Exam Narrative Exam Narrative: Const: WDWN male in NAD. VS per triage. HEENT: NC/AT. Normal facial exam. TMs clear bilaterally. OP/Posterior OP clear. No sinus tenderness. Neck: Supple. Trachea midline. No adenopathy. Lungs: Normal respiratory effort. Lungs are clear. Cor: RRR without murmur. Good radial pulses. Neuro: A+O x 3. Normal speech, mentation, gait. Cranial nerves II - XII grossly intact. No gross motor or sensory deficit. Course Vital Signs Vital signs: Vital Signs Temperature 97.7 F 04/04/25 05:33 Pulse 79 04/04/25 05:33 Respiratory Rate 16 04/04/25 05:33 Blood Pressure 183/105 H 04/04/25 05:33 Pulse Oximetry 99 04/04/25 05:33 Temperature 97.7 F 04/04/25 05:38 Temperature Source Temporal Artery Scan 04/04/25 05:38 Pulse 79 04/04/25 05:38 Respiratory Rate 16 04/04/25 05:38 Respiratory Effort Normal, Non-Labored 04/04/25 05:38 Respiratory Depth Normal 04/04/25 05:38 Blood Pressure 183/105 H 04/04/25 05:38 Blood Pressure Position Sitting 04/04/25 05:38 Pulse Oximetry 99 04/04/25 05:38 Oxygen Delivery Method Room Air 04/04/25 05:38 Oxygen Flow Rate 0 04/04/25 05:38 Pain Level 0 04/04/25 05:38 Medical Decision Making Patient presenting to ED with 3-day history of cough and cold symptoms. His major complaint is inability to sleep because of persistent cough. Denies any chest pain or shortness of breath. Vital signs with elevated blood pressure but he has not taken his medication yet this morning. Saturations are normal as is pulse and respirations. Lungs are completely clear. Exam otherwise reassuring. No indication for antibiotics or imaging. Will provide prescription for Tessalon Perles to help control his cough. Also informed that he may use Afrin 12-hour nasal spray for 3 days to help with his congestion but was cautioned not to use beyond 3 days. Continue to stay hydrated. May return to work once his symptoms are improving and he has been afebrile without antipyretics for 24 hours. Work note was provided. Follow-up with primary care next week if not improved. Return precautions provided. [facility] All Active Problems (Updated 04/04/25 @ 05:48 by Rex Phelps MD) URI (upper respiratory infection) (Acute) Spinal stenosis at L4-L5 level (Acute) Low back pain (Acute) Left shoulder pain (Acute) Encounter for screening colonoscopy (Acute) GERD (gastroesophageal reflux disease) (Chronic) Gynecomastia (Acute) Achilles tendonitis (Acute) Hair loss (Acute) Personal history of nicotine dependence (Acute) qui6 06/2021 Chest pain (Acute) Mid back pain on right side (Acute) Otitis media, left (Acute) Depression (Chronic) Blackout spell (Chronic) Seizure disorder (Chronic) no seizures activity for 5 years per patient Obstructive sleep apnea syndrome (Acute 12/08/15) Morbid obesity (Acute) Hyperlipidemia with target LDL less than 100 (Acute) Essential hypertension (Acute 03/28/13) Medical History (Updated 04/04/25 @ 05:48 by Rex Phelps MD) Hyperplastic colon polyp (~03/2024) Surgical History (Updated 04/07/24 @ 12:58 by Carina Suggs) History of colonoscopy (~03/2024) H/O left wrist surgery Tonsillectomy and adenoidectomy Family History Other Hypertension Social History Smoking/Tobacco Use Status: Current-Occasional Tobacco Type: cigarettes Smokeless tobacco user: other (cigar) Quit status: quit date established Second Hand Exposure: Yes Smoking risk assessment performed?: Yes Alcohol Intake: current Alcohol Intake frequency: holidays/special occasions only Alcohol type: wine Drug use: Socially Substance use type: marijuana Household members: spouse and children Housing: house 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
[2025-04-04] MEDS: Benzonatate 100 MG CAP PO (05:54)
== END 2025-04-04 06:10 | disposition home or self-care (01) ==
LOC: ER 06:00
PROVIDERS: Emergency Provider Emergency Medicine; PCP Family Medicine
DX: J06.9 Acute upper respiratory infection, unspecified (principal)
CPT/HCPCS: 99283 ×2